=== PATIENT | male | born 1975 | race Hispanic/Latino ===

== ENCOUNTER → 2023-02-16 | Emergency (ER) | payer BC ==
--- OUTSIDE RECORDS SUMMARY | 2023-02-16 10:28 | XMS REPORT | Continuity of Care Document ---
Author Name Unknown Address [address] [facility] [address] [place] [address] [facility] thconnect Address [address] [facility] [address] [place] [address] Care Team Providers Care Floors Buffer Name Role Phone PCP, PATIENT DOES NOT HAVE A Primary Care Physic isa Unavailable LUIS GRIFFIN Attending Clinician Unavailable LAB90 Attending Clinician Unavailable ELIZABETH ROSS Attending Clinician Unavailable MINI VU Attending Clinician Unaaidee Vu MD, Mini Solo Attending Clinician [phone] Toñito Moss RN Attending Clinician Unavail able BERENICE DUGGAN Attending Clinician Unavailable Pat Lindsay NP Attending Clinician [phone] Berenice Duggan DO Attending Clinician [phone] BERENICE DUGGAN Admitting Clinician Unavailable Berenice Duggan DO Admitting Clinician [phone] Payers Payer Name Policy Type Policy Number Effective Date Expirati on Date Source BCBS 2 [id number] 2020 00:00:00 Problems Condition Name Condition Details Condition Category Status Onset Date Resolution Date Last Treatment Date Treating Clinician Comments Source Type 2 diabetes mellitus with hyperlipid emia (multi HCC) Type 2 diabetes mellitus with hyperlipid emia (multi HCC) Disease Active 11-21 00:00: 00 Mary Kay monte Class 2 severe obesity due to excess calories with serious comorbidit y and body mass index (BMI) of 36.0 to 36.9 in adult Class 2 severe obesity due to excess calories with serious comorbidit y and body mass index (BMI) of 36.0 to 36.9 in adult Disease Active 11-21 00:00: 00 Mary Kay monte Decreased libido Decreased libido Disease Active 11-21 00:00: 00 Mary Kay Rollinsa lavell Uncontroll ed type 2 diabetes mellitus with hyperglyce denny (HCC) - Not Controlled Uncontroll ed type 2 diabetes mellitus with hyperglyce denny (HCC) - Not Controlled Disease Active 09-08 00:00: 00 Mary Kay Rollinsa lavell Hyperlipid emia Hyperlipid emia Disease Active 09-08 00:00: 00 Mary Kay Rollinsa lavell Elevated liver enzymes - Not Controlled Elevated liver enzymes - Not Controlled Disease Active 09-08 00:00: 00 Mary Kay Rollinsa lavell Obesity (BMI 30-39.9) Obesity (BMI 30-39.9) Disease Active 07-23 00:00: 00 [facility] Acute respirator y failure due to COVID-19 Acute respirator y failure due to COVID-19 Disease Active 07-23 00:00: 00 Mary Kay Rollinsa lavell Allergies, Adverse Reactions, Alerts Allergy Name Allergy Type Status Severity Reaction(s) Onset Date Inactive Date Treating Clinician Comments Source NO KNOWN ALLERGIE S Drug Class Active [facility] Social History Social Habit Start Date Stop Date Quantity Comments Source Gender identity 2020-06-01 08:07:15 Identifies as male gender (finding) Mary Kay Greenfield - External Exposure to SARS-CoV-2 (event) Not sure Mary Kay florez Sexual orientation Jake Greenfield - External History of Social function 2022-08-07 00:00:00 2022-08-07 00:00:00 Mary Kay Greenfield - External Tobacco use and exposure 2022-07-02 00:00:00 2022-07-02 00:00:00 Smokeless tobacco non-user Mary Kay Greenfield - External Sex Assigned At 1975 00:00:00 1975 00:00:00 [facility] Smoking Status Start Date Stop Date Source Never smoked tobacco Mary Kay Jean Pierre Chambers Unknown if ever smoked [facility] Medications Ordered Medication Name Filled Medication Name Start Date Stop Date Current Medication? Ordering Clinician Indication Dosage Frequency Signature (SIG) Comments Components Source Cholecalcif sheldon (Vitamin D) 25 MCG (1000 UT) oral Tablet 2022-02 08:37: 58 Yes 25U Take 25 units by mouth daily. Mary Kay monte Cyanocobala min (B-12) 100 MCG oral Tablet 2022-02 08:37: 58 Yes Take by mouth. Mary Kay monte OZEMPIC (0.25 or 0.5 mg/dose) 2 mg/3 mL SQ Solution Pen-Injecto r 2022-02 00:00: 00 Yes [id number] .5mg Inject 0.5 mg into the skin once a week. Mary Kay monte Metformin HCl 500 MG oral Tablet 2022-02 00:00: 00 Yes [id number] 1000mg Take 2 tablets (1,000 mg total) by mouth in the morning and 2 tablets (1,000 mg total) in the evening. Take with meals. Mary Kay monte Empaglifloz in 10 MG oral Tablet 08-07 00:00: 00 Yes [id number] 10mg Take 1 tablet (10 mg total) by mouth daily Mary Kay monte Empaglifloz in 10 MG oral Tablet 14 00:00: 00 12-11 00:00 :00 No [id number] 10mg Take 1 tablet (10 mg total) by mouth daily Mary Kay monte Metformin HCl 500 MG oral Tablet 18 00:00: 00 Yes [id number] 1000mg Take 2 tablets (1,000 mg total) by mouth in the morning and 2 tablets (1,000 mg total) in the evening. Take with meals. Mary Kay monte Metformin HCl 500 MG oral Tablet 18 00:00: 00 12-11 00:00 :00 No [id number] 1000mg Take 2 tablets (1,000 mg total) by mouth in the morning and 2 tablets (1,000 mg total) in the evening. Take with meals. Mary Kay Seybold - Externa l Blood Glucose Monitoring Suppl (Blood Glucose Monitor System) w/Device does not apply Kit 07-02 00:00: 00 Yes [id number] Check BS daily Mary Kay Seybold - Externa l Glucose Blood in vitro Strip 07-02 00:00: 00 Yes [id number] 1{each} 1 each by other route daily Check BS daily Mary Kay Seybold - Externa l Lancets 33G does not apply Misc 07-02 00:00: 00 Yes [id number] 1{ivon t} 1 Lancet by does not apply route daily Check BS daily Mary Kay Seybold - Externa l Rosuvastati n Calcium 10 MG oral Tablet 07-02 00:00: 00 Yes [id number] 10mg Take 1 tablet (10 mg total) by mouth nightly Mary Kay Seybold - Externa l Blood Glucose Monitoring Suppl (Blood Glucose Monitor System) w/Device does not apply Kit 07-02 00:00: 00 Yes [id number] Check BS daily Mary Kay Seybold - Externa l Glucose Blood in vitro Strip 07-02 00:00: 00 Yes [id number] 1{each} 1 each by other route daily Check BS daily Mary Kay Seybold - Externa l Lancets 33G does not apply Misc 07-02 00:00: 00 Yes [id number] 1{ivon t} 1 Lancet by does not apply route daily Check BS daily Mary Kay Seybold - Externa l Rosuvastati n Calcium 10 MG oral Tablet 07-02 00:00: 00 Yes [id number] 10mg Take 1 tablet (10 mg total) by mouth nightly Mary Kay Seybold - Externa l Blood Glucose Monitoring Suppl (Blood Glucose Monitor System) w/Device does not apply Kit 07-02 00:00: 00 Yes [id number] Check BS daily Mary Kay Seybold - Externa l Glucose Blood in vitro Strip 07-02 00:00: 00 Yes [id number] 1{each} 1 each by other route daily Check BS daily Mary Kay Seybold - Externa l Lancets 33G does not apply Misc 07-02 00:00: 00 Yes [id number] 1{ivon t} 1 Lancet by does not apply route daily Check BS daily Mary Kay monte Rosuvastati n Calcium 10 MG oral Tablet 07-02 00:00: 00 Yes [id number] 10mg Take 1 tablet (10 mg total) by mouth nightly Mary Kay monte Metformin HCl 500 MG oral Tablet 07-02 00:00: 00 Yes [id number] 500mg Take 1 tablet (500 mg total) by mouth in the morning and 1 tablet (500 mg total) in the evening. Take with meals. Mary Kay Greenfield - Ayoa l OZEMPIC (0.25 or 0.5 mg/dose) 2 mg/3 mL SQ Solution Pen-Injecto r 07-02 00:00: 00 12-11 00:00 :00 No [id number] .25mg Inject 0.25 mg into the skin once a week Mary Kay Rollinsa l OZEMPIC (0.25 or 0.5 mg/dose) 2 mg/3 mL SQ Solution Pen-Injecto r 07-02 00:00: 00 08-28 04:59 :00 No [id number] .25mg Inject 0.25 mg into the skin once a week Mary Kay Greenfield - Externa l OZEMPIC (0.25 or 0.5 mg/dose) 2 mg/3 mL SQ Solution Pen-Injecto r 07-02 00:00: 00 08-28 04:59 :00 No [id number] .25mg Inject 0.25 mg into the skin once a week Mary Kay Greenfield - Externa l OZEMPIC (0.25 or 0.5 mg/dose) 2 mg/1.5 mL SQ Solution Pen-Injecto r 11-21 00:00: 00 Yes [id number] 104 .25mg Inject 0.25 mg into the skin once a week Mary Kay Greenfield - Externa l OZEMPIC (0.25 or 0.5 mg/dose) 2 mg/1.5 mL SQ Solution Pen-Injecto r 11-21 00:00: 07-02 00:00 :00 No [id number] 104 .25mg Inject 0.25 mg into the skin once a week Mary Kay monte Rosuvastati n Calcium 10 MG oral Tablet 10-26 00:00: 00 Yes [id number] TAKE 1 TABLET BY MOUTH EVERY DAY Mary Kay monte Rosuvastati n Calcium 10 MG oral Tablet 10-26 00:00: 00 07-02 00:00 :00 No [id number] TAKE 1 TABLET BY MOUTH EVERY DAY Mary Kay monte glipiZIDE 5 MG oral Tablet 06-19 00:00: 00 Yes [id number] 5mg Take 1 tablet (5 mg total) by mouth daily (before a meal) Mary Kay monte glipiZIDE 5 MG oral Tablet 06-19 00:00: 00 07-02 00:00 :00 No [id number] 5mg Take 1 tablet (5 mg total) by mouth daily (before a meal) Mary Kay monte Rosuvastati n Calcium 10 MG oral Tablet 303 00:00: 00 Yes [id number] 10mg Take 1 tablet (10 mg total) by mouth daily Mary Kay Greenfield Metformin HCl 500 MG oral Tablet 2- 00:00: 00 Yes [id number] 1000mg Take 2 tablets (1,000 mg total) by mouth 2 times daily (with meals) Mary Kay Greenfield Metformin HCl 500 MG oral Tablet 0 2-28 00:00: 00 Yes [id number] 1000mg Take 2 tablets (1,000 mg total) by mouth 2 times daily (with meals) Mary Kay Greenfield Metformin HCl 500 MG oral Tablet 0 2-28 00:00: 00 Yes [id number] 1000mg Take 2 tablets (1,000 mg total) by mouth 2 times daily (with meals) Mary Kay monte Metformin HCl 500 MG oral Tablet 228 00:00: 00 07-02 00:00 :00 No [id number] 1000mg Take 2 tablets (1,000 mg total) by mouth 2 times daily (with meals) Mary Kay Seybold - Externa l Metformin HCl 500 MG oral Tablet 716 00:00: 00 04-23 00:00 :00 No [id number] 500mg Take 1 tablet (500 mg total) by mouth 2 times daily (with meals) Mary Kay Greenfield Dexamethaso ne 2 MG oral Tablet 08-16 00:00: 00 04-23 00:00 :00 No Mary Kay Greenfield cholecalcif sheldon, vitamin D3, 25 mcg (1,000 unit) tablet 07-28 00:00: 00 Yes [id number] 2000U Take 2 tablets by mouth daily. [facility] zinc sulfate 50 mg zinc (220 mg) capsule 07-28 00:00: 00 Yes [id number] 220mg Take 1 capsule by mouth daily. [facility] cholecalcif sheldon, vitamin D3, 25 mcg (1,000 unit) tablet 07-28 00:00: 00 Yes [id number] 2000U Take 2 tablets by mouth daily. [facility] zinc sulfate 50 mg zinc (220 mg) capsule 07-28 00:00: 00 Yes [id number] 220mg Take 1 capsule by mouth daily. [facility] Benzonatate 200 MG oral Capsule 07-28 00:00: 00 04-23 00:00 :00 No [id number] 200mg Q.[id number] 3D Take 1 capsule (200 mg total) by mouth 3 times daily as needed for cough Mary Kay Greenfield Cholecalcif sheldon 25 MCG (1000 UT) oral Tablet 07-28 00:00: 00 04-23 00:00 :00 No 2000U Take 2,000 units by mouth daily Mary Kay Greenfield ascorbic acid, vitamin C, 500 mg tablet 07-27 00:00: 00 Yes [id number] 500mg Take 1 tablet by mouth 2 (two) times daily. [facility] aspirin 81 mg chewable tablet 07-27 00:00: 00 Yes [id number] 81mg Take 1 tablet by mouth daily. [facility] ascorbic acid, vitamin C, 500 mg tablet 07-27 00:00: 00 Yes [id number] 500mg Take 1 tablet by mouth 2 (two) times daily. [facility] aspirin 81 mg chewable tablet 07-27 00:00: 00 Yes [id number] 81mg Take 1 tablet by mouth daily. [facility] Zinc Sulfate 220 (50 Zn) MG oral Capsule 07-27 00:00: 00 04-23 00:00 :00 No 1{capsu le} Take 1 capsule by mouth daily Mary Kay Greenfield Dexamethaso ne 6 MG oral Tablet 07-27 00:00: 00 04-23 00:00 :00 No TAKE 1 TABLET BY MOUTH DAILY WITH BREAKFAST FOR 5 DAYS. Mary Kay Greenfield Cholecalcif sheldon (Vitamin D3) 25 MCG (1000 UT) oral Tablet 07-27 00:00: 00 04-23 00:00 :00 No 2{tbl} Take 2 tablets by mouth daily Mary Kay Greenfield Aspirin 81 MG oral Chewable Tablet 07-27 00:00: 00 04-23 00:00 :00 No 81mg Take 81 mg by mouth daily Mary Kay Greenfield Ascorbic Acid 500 MG oral Tablet 07-27 00:00: 00 04-23 00:00 :00 No 500mg Take 500 mg by mouth 2 times daily Mary Kay Greenfield dexAMETHaso ne 6 mg tablet 07-27 00:00: 00 08-02 04:59 :00 No [id number] 6mg Take 1 tablet by mouth daily with breakfast for 5 days. [facility] dexAMETHaso ne 6 mg tablet 07-27 00:00: 00 08-02 04:59 :00 No [id number] 6mg Take 1 tablet by mouth daily with breakfast for 5 days. [facility] ALPRAZolam (XANAX) tablet 0.25 mg 07-25 01:00: 00 Yes .25mg 0.25 mg, Oral, TID, First dose on Fri07/24/20 at 2000, Until Discontinu ed, Routine [facility] cholecalcif sheldon (vitamin D3) tablet 1,000 Units 07-24 14:00: 00 Yes 1000U 1,000 Units, Oral, DAILY, First dose on Fri07/24/20 at 0900, Until Discontinu ed, Routine [facility] zinc sulfate (ORAZINC) capsule 220 mg 07-24 14:00: 00 Yes 220mg 220 mg, Oral, DAILY, First dose on Fri07/24/20 at 0900, Until Discontinu ed, Routine [facility] ascorbic acid (vitamin C) (VITAMIN C) tablet 500 mg 07-24 13:00: 00 Yes 500mg 500 mg, Oral, BID, First dose on Fri07/24/20 at 0800, Until Discontinu ed, Routine [facility] albuterol-i pratropium (COMBIVENT RESPIMAT) 20-100 mcg/actuati on inhaler 1 Puff 07-24 13:00: 00 Yes 1{puff} 1 Puff, Inhalation , QID, First dose on Fri07/24/20 at 0800, Until Discontinu ed, Routine
Is this order for a patient with suspected or confirmed COVID-19 infection? Yes [facility] codeine-gua ifenesin (ROBITUSSIN AC) 10-100 mg/5 mL solution 5 mL 07-24 02:09: 32 Yes 5mL 5 mL, Oral, Q6HPRN, Starting 07/23/20 at 210, Until Discontinu ed, Routine, Cough [facility] benzonatate (TESSALON PERLES) capsule 100 mg 07-24 02:09: 12 Yes 100mg 100 mg, Oral, TIDPRN, Starting 07/23/20 at 2109, Until Discontinu ed, Routine, Cough [facility] dexamethaso ne (DECADRON PHOSPHATE) injection 6 mg 07-24 01:30: 00 Yes 6mg 6 mg, IV Push, Q24H, First dose (after last reorder) on Fri07/23/20 at 2030, Until Discontinu ed, Routine [facility] enoxaparin (LOVENOX) injection 40 mg 07-24 01:00: 00 Yes 40mg 40 mg, Subcutaneo us, DAILY, First dose on Fri07/23/20 at 2000, Until Discontinu ed, Routine [facility] glucagon (GLUCAGEN DIAGNOSTIC KIT) injection 1 mg 07-24 00:16: 50 Yes 1mg 1 mg, Intramuscu lar, PRN, Starting Crowley 07/23/20 at 191, Until Discontinu ed, ALESSANDRO, Blood Glucose < or = 70 mg/dL and patient is unable to swallow or has mental changes. [facility] dextrose 50 % in water (D50W) injection 25 mL 07-24 00:16: 50 Yes 25mL 25 mL, Slow IV Push, PRN, Starting Crowley 07/23/20 at 191, Until Discontinu ed, ALESSANDRO, Blood Glucose < or = 70 mg/dL and patient is unable to swallow or has mental status changes. [facility] dexamethaso ne (DECADRON PHOSPHATE) injection 6 mg 07-23 23:15: 00 07-23 22:24 :00 No 6mg 6 mg, IV Push, ONCE, 1 dose, [place] 07/23/20 at 1815, STAT [facility] iopamidol (ISOVUE 370-500 mL) injection 100 mL 07-23 23:15: 00 07-23 22:08 :00 No [id number] 100mL 100 mL, Intravenou s, ONCE, 1 dose, [place] 07/23/20 at 1815, Routine [facility] benzonatate (TESSALON PERLES) capsule 200 mg 07-23 22:30: 00 07-23 21:26 :00 No 200mg 200 mg, Oral, ONCE, 1 dose, [place] 07/23/20 at 1730, Routine [facility] aspirin tablet 325 mg 07-23 22:00: 00 07-23 21:05 :00 No 325mg 325 mg, Oral, ONCE, 1 dose, [place] 07/23/20 at 1700, STAT [facility] albuterol (VENTOLIN) inhaler 4 Puff 07-23 22:00: 00 07-23 21:06 :00 No 4{puff} 4 Puff, Inhalation , ONCE, 1 dose, [place] 07/23/20 at 1700, ALESSANDRO
Is this order for a patient with suspected or confirmed COVID-19 infection? Yes [facility] NaCl 0.9% (NS) bolus infusion 1,000 mL 07-23 21:00: 00 07-23 22:30 :00 No 1000mL at 999 mL/hr, 1,000 mL, IV Infusion, ONCE, 1 dose, [place] 07/23/20 at 1600, ALESSANDRO [facility] Vital Signs Vital Name Observation Time Observation Value Comments S ource Systolic blood pressure 2022-12-11 13:38:00 113 mm[Hg] Mary Kay Seybo ld - External Diastolic blood pressure 2022-12-11 13:38:00 69 mm[Hg] Mary Kay ybo ld - External Heart rate 2022-12-11 13:38:00 80 /min Margie Greenfield - External Body temperature 2022-12-11 13:38:00 36.61 Germaine Mary Kay Khanybold - External Respiratory rate 2022-12-11 13:38:00 15 /min Mary Kay Khanybold - External Body height 2022-12-11 13:38:00 172.7 cm [place] gallego Seybold - External Body weight 2022-12-11 13:38:00 110.224 kg [place] gallego Seybold - External BMI 2022-12-11 13:38:00 36.95 kg/m2 [place] ey Seybold - External Oxygen saturation in Arterial blood by Pulse oximetry 2022-12-11 13:38:00 99 /min Mary Kay Khanybo ld - External Systolic blood pressure 2022-08-07 19:43:00 126 mm[Hg] Mary Kay Seybo ld - External Diastolic blood pressure 2022-08-07 19:43:00 70 mm[Hg] Mary Kay Seybo ld - External Heart rate 2022-08-07 19:43:00 76 /min Eltonse y Seybold - External Body temperature 2022-08-07 19:43:00 36.89 Germaine Amry Kay Seybold - External Respiratory rate 2022-08-07 19:43:00 16 /min Mary Kay Seybold - External Body height 2022-08-07 19:43:00 172.7 cm [place] ey Seybold - External Body weight 2022-08-07 19:43:00 110.768 kg [place] ey Seybold - External BMI 2022-08-07 19:43:00 37.13 kg/m2 [place] ey Seybold - External Oxygen saturation in Arterial blood by Pulse oximetry 2022-08-07 19:43:00 95 /min Mary Kay Seybo ld - External Systolic blood pressure 2022-07-02 19:28:00 121 mm[Hg] Mary Kay Seybo ld - External Diastolic blood pressure 2022-07-02 19:28:00 77 mm[Hg] Mary Kay Seybo ld - External Heart rate 2022-07-02 19:28:00 89 /min Kelse y Seybold - External Body temperature 2022-07-02 19:28:00 36.83 Germaine Mary Kay Seybold - External Respiratory rate 2022-07-02 19:28:00 14 /min Mary Kay Seybold - External Body height 2022-07-02 19:28:00 172.7 cm [place] ey Seybold - External Body weight 2022-07-02 19:28:00 112.038 kg [place] ey Seybold - External BMI 2022-07-02 19:28:00 37.56 kg/m2 [place] ey Seybold - External Systolic blood pressure 2021-11-21 19:07:00 104 mm[Hg] Mary Kay Seybo ld - External Diastolic blood pressure 2021-11-21 19:07:00 60 mm[Hg] Mary Kay Seybo ld - External Heart rate 2021-11-21 19:07:00 78 /min Kelse y Seybold - External Body temperature 2021-11-21 19:07:00 36.56 Germaine Mary Kay Seybold - External Respiratory rate 2021-11-21 19:07:00 16 /min Mary Kay Seybold - External Body height 2021-11-21 19:07:00 172.7 cm [place] ey Seybold - External Body weight 2021-11-21 19:07:00 112.038 kg [place] ey Seybold - External BMI 2021-11-21 19:07:00 37.56 kg/m2 [place] ey Seybold - External Systolic blood pressure 2021-06-18 14:22:00 127 mm[Hg] Mary Kay Seybo ld Diastolic blood pressure 2021-06-18 14:22:00 83 mm[Hg] Mary Kay Seybo ld Heart rate 2021-06-18 14:22:00 80 /min Kelse y Seybold Body temperature 2021-06-18 14:22:00 36.56 Germaine Mary Kay Seybold Respiratory rate 2021-06-18 14:22:00 14 /min Mary Kay Seybold Body height 2021-06-18 14:22:00 172.7 cm [place] ey Seybold Body weight 2021-06-18 14:22:00 112.038 kg [place] ey Seybold BMI 2021-06-18 14:22:00 37.56 kg/m2 [place] ey Seybold Oxygen saturation in Arterial blood by Pulse oximetry 2021-06-18 14:22:00 99 /min Mary Kay Seybo ld Systolic blood pressure 2021-04-23 15:44:00 116 mm[Hg] Mary Kay Seybo ld Diastolic blood pressure 2021-04-23 15:44:00 74 mm[Hg] Mary Kay Seybo ld Heart rate 2021-04-23 15:44:00 84 /min Kelse y Seybold Body temperature 2021-04-23 15:44:00 36.39 Germaine Mary Kay Seybold Respiratory rate 2021-04-23 15:44:00 14 /min Mary Kay Seybold Body height 2021-04-23 15:44:00 172.7 cm [place] ey Seybold Body weight 2021-04-23 15:44:00 110.224 kg [place] ey Seybold BMI 2021-04-23 15:44:00 36.95 kg/m2 [place] ey Seybold Respiratory rate 2020-07-27 17:29:00 16 /min [facility] Oxygen saturation in Arterial blood by Pulse oximetry 2020-07-27 17:29:00 93 /min [facility] Systolic blood pressure 2020-07-27 17:07:00 129 mm[Hg] [facility] Diastolic blood pressure 2020-07-27 17:07:00 81 mm[Hg] [facility] Body temperature 2020-07-27 17:07:00 36.78 Germaine [facility] Heart rate 2020-07-27 09:15:00 81 /min [facility] Body weight 2020-07-27 09:15:00 106.459 kg [facility] BMI 2020-07-27 09:15:00 35.69 kg/m2 [facility] Body height 2020-07-24 01:00:00 172.7 cm [facility] Procedures Procedure Date / Time Performed Performing Clinician Source BASIC METABOLIC PANEL (NA, K, CL, CO2, GLUCOSE, BUN, CREATININE, CA) 2020-07-26 10:56:00 Berenice Duggan [facility] MAGNESIUM 2020-07-25 11:09:00 Berenice Duggan [facility] BASIC METABOLIC PANEL (NA, K, CL, CO2, GLUCOSE, BUN, CREATININE, CA) 2020-07-25 11:09:00 Berenice Duggan [facility] CBC WITH DIFF 2020-07-25 11:08:00 Berenice Duggan [facility] MRSA / MSSA SCREEN BY PCRLENA 2020-07-24 21:51:00 Berenice Duggan [facility] CT CHEST PULMONARY ANGIOGRAM 2020-07-23 22:11:49 Pat Lindsay [facility] HB ECG ROUTINE & RHYTHM STRIP 2020-07-23 21:32:49 Pat Lindsay [facility] D-DIMER 2020-07-23 21:16:00 Pat Lindsay [facility] N-TERMINAL PRO-BNP 2020-07-23 21:16:00 Pat Lindsay [facility] COVID-19 (ID NOW RAPID TESTING) 2020-07-23 21:16:00 Pat Lindsay [facility] LAB ONLY COVID INTERPRETATION 2020-07-23 21:16:00 Pat Lindsay [facility] LACTATE DEHYDROGENASE 2020-07-23 21:16:00 Aretha Lindsay [facility] LIPASE 2020-07-23 21:16:00 Pat Lindsay [facility] FERRITIN SERUM 2020-07-23 21:16:00 [facility] 2020-07-23 21:16:00 Pat Lindsay [facility] HEPATIC FUNCTION PANEL ([id number]) (ALB,T.PRO,BILI T,BU/BC,ALT,AST,ALK PHOS) 2020-07-23 21:16:00 Pat Lindsay [facility] BASIC METABOLIC PANEL (NA, K, CL, CO2, GLUCOSE, BUN, CREATININE, CA) 2020-07-23 21:16:00 Pat Lindsay [facility] CBC WITH DIFF 2020-07-23 21:16:[address] [facility] LACTIC ACID WHOLE BLOOD 2020-07-23 21:15:00 Kehinde Lindsay [facility] XR CHEST 1 VW 2020-07-23 21:02:[address] [facility] NOTICE OF PRIVACY PRACTICES 2020-07-23 20:33:17 Doctor Unassigned, [place] [facility] CONSENT/REFUSAL FOR DIAGNOSIS AND TREATMENT 2020-07-23 20:33:05 Doctor Unassigned, [place] [facility] Encounters Start Date/Time End Date/Time Encounter Type Admission Type Attending [facility] Care Facility Care Department Encounter ID Source 2023-01-22 15:30:00 2023-01-22 15:30:00 Outpatient LUIS GRIFFIN [id number] Mary Kay Greenfield 2023-01-16 00:00:00 2023-01-16 00:00:00 Outpatient LUIS GRIFFIN [id number] Mary Kay Greenfield 2022-12-16 00:00:00 2022-12-16 00:00:00 Outpatient LUIS GRIFFIN [id number] Mary Kay Greenfield 2022-12-13 00:00:00 2022-12-13 00:00:00 Outpatient PREZAS, LUIS PAYTON MARY KAY [id number] Mary Kay [facility] 2022-12-11 09:30:00 2022-12-11 09:30:00 Outpatient LABWilliams PAYTON MARY KAY [id number] Mary Kay [facility] 2022-12-11 09:00:00 2022-12-11 09:00:00 Outpatient PREZAS, LUIS PAYTON MARY KAY [id number] Mary Kay [facility] 2022-10-31 00:00:00 2022-10-31 00:00:00 Outpatient PREZAS, LUIS MARY KAY PAYTON [id number] Mary Kay [facility] 2022-10-11 00:00:00 2022-10-11 00:00:00 Outpatient PREZAS, LUIS MARY KAY PAYTON [id number] Mary Kay [facility] 2022-09-18 00:00:00 2022-09-18 00:00:00 Outpatient PREZAS, LUIS MARY KAY PAYTON [id number] Mary Kay [facility] 2022-09-10 00:00:00 2022-09-10 00:00:00 Outpatient PREZAS, LUIS MARY KAY PAYTON [id number] Mary Kay [facility] 2022-08-07 14:45:00 2022-08-07 14:45:00 Outpatient CODY, ELIZABETH MARY KAY PA[place]TON [id number] Mary Kay [facility] 2022-08-01 13:45:00 2022-08-01 13:45:00 Outpatient PREZAS, LUIS MARY KAY PAYTON [id number] Mary Kay [facility] 2022-07-11 00:00:00 2022-07-11 00:00:00 Outpatient PREZAS, LUIS MARY KAY PAYTON [id number] Mary Kay [facility] 2022-07-02 15:00:00 2022-07-02 15:00:00 Outpatient LABWilliams MARY KAY PAYTON [id number] Mary Kay [facility] 2022-07-02 14:15:00 2022-07-02 14:15:00 Outpatient PREZAS, LUIS MARY KAY PAYTON [id number] Mary Kay [facility] 2022-06-17 08:45:00 2022-06-17 08:45:00 Outpatient PREZAS, LUIS PAYTON MARY KAY [id number] Mary Kay [facility] 2022-05-17 00:00:00 2022-05-17 00:00:00 Outpatient PREZAS, LUIS PAYTON MARY KAY [id number] Mary Kay [facility] 2022-01-29 00:00:00 2022-01-29 00:00:00 Outpatient PREZAS, LUIS PAYTON MARY KAY [id number] [facility] 2021-12-07 00:00:00 2021-12-07 00:00:00 Outpatient PREZALUIS Alicea MARY KAY [id number] Mary Kay [facility] 2021-11-21 15:00:00 2021-11-21 15:00:00 Outpatient LAB90 MARY KAY MARY KAY [id number] Mary Kay [facility] 2021-11-21 14:15:00 2021-11-21 14:15:00 Outpatient PREZAS, LUIS PAYTON MARY KAY [id number] Mary Kay [facility] 2021-11-20 00:00:00 2021-11-20 00:00:00 Outpatient PREZAS, LUIS PAYTON MARY KAY [id number] Mary Kay [facility] 2021-09-27 00:00:00 2021-09-27 00:00:00 Outpatient MINI VU [id number] [facility] 2021-09-26 00:00:00 2021-09-26 00:00:00 [facility] [id number] [facility] 2021-09-21 09:10:00 2021-09-21 09:10:00 Outpatient LAB90 MARY KAY MARY KAY [id number] Mar [facility] 2021-09-20 09:15:00 2021-09-20 09:45:00 Office Visit Mini Vu Valentines [id number] 350.1.13.13 [id number] [id number] [facility] 2021-09-17 08:00:00 2021-09-17 08:00:00 Outpatient MINI VU [id number] [facility] 2021-06-18 10:15:00 2021-06-18 10:15:00 Outpatient LAB90 MARY KAY PAYTON [id number] Mary Kay [place] 2021-06-18 09:45:00 2021-06-18 10:00:00 Office Visit Mini Vu 1.84.114 350.1.13.13 1.2.7.2.686 [id number] Mary Kay [place] 2021-04-24 09:35:00 2021-04-24 09:35:00 Outpatient LAB90 MARY KAY PAYTON [id number] [facility] 2021-04-23 10:00:00 2021-04-23 10:30:00 Office Visit Mini Vu 1.84.114 350.1.13.13 1.2.7.2.686 [id number] [facility] 2020-10-09 08:15:00 2020-10-09 08:15:00 Outpatient MINI VU MARY KAY PAYTON [id number] [facility] 2020-09-08 13:30:00 2020-09-08 13:30:00 Outpatient MINI VU MARY KAY PAYTON [id number] Mary Kay [facility] 2020-07-28 00:00:00 2020-07-28 00:00:00 Transition of Care Toñito Moss .84.114 350.1.13.10 4.2.7.2.686 [id number] [facility] 2020-07-23 15:56:00 2020-07-27 16:42:00 Inpatient X BERENICE DUGGAN [facility] [id number] [facility] 2020-07-23 15:56:00 2020-07-27 16:42:00 Hospital Encounter Pat Lindsay David [facility] 1.840.114 350.1.13.10 4.2.7.2.686 [id number] [facility] Results Test Description Test Time Test Comments Results Result Co mments Source [facility] by PCR, [id number] 15:51:01* Test Item Value Reference Range Interpretation Comme nts MSSA Screen by PCR, Nares (test code = 70511-4) Positive Negative A MRSA/MSSA Positive? (test code = 4543044556) Yes No A MCKENNA (test code = MCKENNA) A positive test result does not necessarily indicate the presence of viable organism. Lab Interpretation (test code = 96018-0) [facility]normal [facility] WITH [id number] 13:14:16* Test Item Value Reference Range Interpretation Comme nts WBC (test code = 6690-2) See_Comment [Automated messa ge] The system which generated this result transmitted reference range: 4.20 - 10.70 10*3/?L. The reference range was not used to interpret this result as normal/abnormal. RBC (test code = 789-8) See_Comment [Automated messa ge] The system which generated this result transmitted reference range: 4.26 - 5.52 10*6/?L. The reference range was not used to interpret this result as normal/abnormal. HGB (test code = 718-7) 14.6 g/dL 12.2-16.4 HCT (test code = 4544-3) 43.6 % 38.4-49.3 MCV (test code = 787-2) 84.5 fL 81.7-95.6 MCH (test code = 785-6) 28.3 pg 26.1-32.7 MCHC (test code = 786-4) 33.5 g/dL 31.2-35.0 RDW-SD (test code = 46759-4) 38.4 fL 38.5-51.6 L RDW-CV (test code = 788-0) 12.4 % 12.1-15.4 PLT (test code = 777-3) See_Comment H [Automated messa ge] The system which generated this result transmitted reference range: 150 - 328 10*3/?L. The reference range was not used to interpret this result as normal/abnormal. MPV (test code = 64247-0) 9.9 fL 9.8-13.0 NRBC/100 WBC (test code = 6221916095) See_Comment [Automated me ssage] The system which generated this result transmitted reference range: 0.0 - 10.0 /100 WBCs. The reference range was not used to interpret this result as normal/abnormal. NRBC x10^3 (test code = 0436713422) <0.01 See_Comment [Automated messa ge] The system which generated this result transmitted reference range: 10*3/?L. The reference range was not used to interpret this result as normal/abnormal. GRAN MAT (NEUT) % (test code = 770-8) 79.5 % IMM GRAN % (test code = 8567097112) 1.20 % LYMPH % (test code = 736-9) 13.0 % MONO % (test code = 5905-5) 6.1 % EOS % (test code = 713-8) 0.0 % BASO % (test code = 706-2) 0.2 % GRAN MAT x10^3(ANC) (test code = 0416772105) 7.60 10*3/uL 1.99-6.95 H IMM GRAN x10^3 (test code = 2568399874) 0.11 10*3/uL 0.00-0.06 H LYMPH x10^3 (test code = 731-0) 1.24 10*3/uL 1.09-3.23 MONO x10^3 (test code = 742-7) 0.58 10*3/uL 0.36-1.02 EOS x10^3 (test code = 711-2) <0.03 0.06-0.53 L BASO x10^3 (test code = 704-7) <0.03 0.01-0.09 Lab Interpretation (test code = 17932-0) Abnormal [facility] METABOLIC PANEL (NA, K, CL, CO2, GLUCOSE, BUN, CREATININE, CA)2020-07-25 11:53:08* Test Item Value Reference Range Interpretation Comme nts NA (test code = 6176541597) 138 mmol/L 135-145 K (test code = 5140716226) 4.1 mmol/L 3.5-5.0 CL (test code = 0826813883) 100 mmol/L 98-108 CO2 TOTAL (test code = 1779977631) 30 mmol/L 23-31 AGAP (test code = 7008983061) 2-16 BUN (test code = 7090372212) 16 mg/dL 7-23 GLUCOSE (test code = 1420414081) 181 mg/dL 70-110 H CREATININE (test code = 7864751010) 0.83 mg/dL 0.60-1.25 CALCIUM (test code = 8346935376) 9.1 mg/dL 8.6-10.6 eGFR (test code = 0835780942) mL/min/1.73m2 MCKENNA (test code = MCKENNA) Association of Glomerular Filtration Rate (GFR) and Staging of Kidney Disease* + --+ --+ ------+| GFR (mL/min/1.73 m2) ?| With Kidney Damage ?| ?Without Kidney Damage+ --------+ --------+ +| ?>90 ?| ?Stage one ?| ? Normal ?+ ---+ ---+ -------+| ?60-89 ?| ?Stage two ?| ? Decreased GFR ? + --+ --+ ------+| ?30-59 ?| ?Stage three ?| ? Stage three ? + --+ --+ ------+| ?15-29 ?| ?Stage four ? | ? Stage four ?+ ---+ ---+ -------+| ?<15 (or dialysis) ? ?| ?Stage five ? | ? Stage five ?+ ---+ ---+ -------+ *Each stage assumes the associated GFR level has been in effect for at least three months. ?Stages 1 to 5, with or without kidney disease, indicate chronic kidney disease. Notes: Determination of stages one and two (with eGFR >59mL/min/1.73 m2) requires estimation of kidney damage for at least three months as defined by structural or functional abnormalities of the kidney, manifested by either:Pathological abnormalities or Markers of kidney damage (including abnormalities in the composition of the blood or urine or abnormalities in imaging tests). Lab Interpretation (test code = 48542-5) [facility]* Test Item Value Reference Range Interpretation Comme nts MAGNESIUM (test code = 5163920382) 2.4 mg/dL 1.7-2.4 Lab Interpretation (test cod e = 90446-2) Normal [facility] COVID [id number] 04:29:24COVID DMT InterpretationInterpretation/Recommendations: Molecular NAAT Tests for Active Infection with the SARS-CoV-2 Virus: The current test result is positive for the SARS-CoV-2 virus that causes COVID-19 illness. In tvsj-cj-ccjtdrem illness, the patient may be considered no longer infectious when it has been after 10 days since symptom onset, the patient has been afebrile for 24 hours without the use of fever-reducing medications, AND other symptoms of COVID-19 are improving. However, in patients who have been severely ill with COVID-19 or are severely immunocompromised, isolation up to 20days after symptom onset is recommended. Asymptomatic patients are considered infectious for the first 10 days subsequent to the initial positive test result. From the onset of symptoms, if any, thisresult is likely to remain positive up to 2-4 weeks. Tests for IgM and/or IgG Antibodies to the SARS-CoV-2 Virus: ? Testing for IgM and IgG antibodies approximately 3 weeks after illness onset will likely indicate whether the patient has produced antibodies to the SARS-CoV-2 virus. However, some patients may take longer to develop detectable antibodies, while some patients who were infected with SARS-CoV-2 may never develop antibodies. While antibodies to SARS-CoV-2 may provide some degree of im munity, at this time the strength and duration of the antibody response is unknown. Interpretation Result Comments:These interpretation comments are based upon all COVID-19 testing the patient has had at [facility], including molecular NAAT testing (more commonly known as PCR testing and Rapid ID Now testing) and antibody testing.It does not take into account any testing that a patient has had outside of the [facility] medical record. [facility] LABORATORY SERVICESCOVID GnozugnPUGD-UmU-7 Rapid ID NOW (no units) ? ? Date ? Value ? 07/23/2020 ? Positive (A) ? [facility]ORAT[facility] SERVICESP[facility] HospitalCT CHEST PULMONARY [id number] 00:56:041. ?No pulmonary embolism. 2. ?Findings compatible with known atypical infection, including Covid 19 pneumonia. Preliminary Report Dictated by Resident: Joshua Barbosa I, Manjeet Garcia MD., have reviewed this study and agree with theabove report.PROCEDURE: CT ANGIO CHEST WITH CONTRAST - PE PROTOCOL CLINICAL INDICATION: PE suspected, high pretest prob ? COMPARISON: Same day chest radiograph. DOSE: 200 mGy-cm TECHNIQUE AND FINDINGS: A helical CT scan was performed and reconstructedusing 1.25 mmslice thickness from the lung bases through the apices afterthe uncomplicated administration of 100cc of intravenous Omnipaquecontrast. Sagittal and coronal reconstructions, and axial maximum intensityprojections were generated and reviewed to further define anatomy andpossible pathology. (DFOV = 44.5 cm) FINDINGS: PULMONARY ARTERIES: Technically adequate enhancement of the pulmonaryarteries reveals no pulmonary embolism to the level of segmental branches. LINES AND TUBES: None LOWER NECK/THYROID: The visualized portions of thyroid gland are normal. LUNGS: Multifocal peripheral groundglass opacities in the bilateral lungs,which may be seen in the setting of atypical pneumonia. PLEURA: No pleural effusion or pneumothorax. CENTRAL AIRWAY: No bronchiectasis, mucus plugging, or bronchial wallthickening. MEDIASTINUM: A couple of small reactive mediastinal and hilar lymph nodesmeasuring 1 cmin left prevascular station and 1.1 cm in subcarinal and 1.2cm in right hilum. Normal cardiac morphology. No pericardial effusion. AORTA AND GREAT VESSELS: The visualized portions of the aorta are normal incaliber. BONES AND SOFT TISSUES: No suspicious lytic or blastic skeletal lesions. VISUALIZED UPPER ABDOMEN: Unremarkable. [facility], Radiant Results Inft User - 07/23/2020 7:57 PM CDT PROCEDURE: CT ANGIO CHEST WITH CONTRAST - PE PROTOCOLCLINICAL INDICATION: PE suspected, high pretest prob COMPARISON: Same day chest radiograph.DOSE: 200 mGy-cmTECHNIQUE AND FINDINGS: A helical CT scan was performed and reconstructedusing 1.25 mm slice thickness from the lung bases through the apices afterthe uncomplicated administration of 100 cc of in travenous Omnipaquecontrast. Sagittal and coronal reconstructions, and axial maximum intensityprojections were generated and reviewed to further define anatomy andpossible pathology. (DFOV = 44.5 cm)FINDINGS: PULMONARY ARTERIES: Technically adequate enhancement of the pulmonaryarteries reveals no pulmonary embolism to the level of segmental branches.LINES AND TUBES: NoneLOWER NECK/THYROID: The visualized portions of thyroid gland are normal.LUNGS: Multifocal peripheral groundglass opacities in the bilateral lungs,which may be seen in the setting of atypical pneumonia.PLEURA: No pleural effusion or pneumothorax.CENTRAL AIRWAY: No bronchiectasis, mucus plugging, or bronchial wallthickening.MEDIASTINUM: A couple of small reactive mediastinal and hilar lymph nodesmeasuring 1 cm in left prevascular station and 1.1 cm in subcarinal and 1.2cm in right hilum. Normal cardiac morphology. No pericardial effusion. AORTA AND GREAT VESSELS: The visualized portions of the aorta are normal incaliber.BONES AND SOFT TISSUES: No suspicious lytic or blastic skeletal lesions.VISUALIZED UPPER ABDOMEN: Unremarkable.IMPRESSION1. No pulmonary embolism.2. Findings compatible with known atypical infection, including Covid 19pneumonia.Preliminary Report Dictated by Resident: Manjeet Vora MD., have reviewed this study and agree with theabove report. [facility] HospitalXR CHEST 1 [id number] 00:02:18Findings suggestive of atypical infection including but not limited toCovid 19. Preliminary Report Dictated by Resident: Manjeet Melendez MD., have reviewed this study and agree with theabove report.EXAM: XR CHEST 1 VW 07/23/2020 3:57 PM HISTORY: 45 years-old Male with sob COMPARISON: CR,none TECHNIQUE: AP chest radiograph. FINDINGS: Multiple bilateral hazy patchy opacities with peripheral predominance. Thelungs are under distended. No pleural effusion or pneumothorax identified. The cardiomediastinal silhouette is normal in size. No acute osseous abnormalities. [facility], Radiant Results Inft User - 07/23/2020 7:03 PM CDTFormatting of this note might be different from the orig inal.EXAM: XR CHEST 1 VW 07/23/2020 3:57 PMHISTORY: 45 years-old Male with sob COMPARISON: CR,none TECHNIQUE: AP chest radiograph.FINDINGS:Multiple bilateral hazy patchy opacities with peripheral predominance. Thelungs are under distended. No pleural effusion or pneumothorax identified.The cardiomediastinal silhouette is normal in size.No acute osseous abnormalities.IMPRESSIONFindings suggestive of atypical infection including but not limited toCovid 19.Preliminary Report Dictated by Resident: Kayleen Miguel, Manjeet Nichole MD., have reviewed this study and agree with theabove report.[facility] HospitalFERRITIN [id number] 22:39:08* Test Item Value Reference Range Interpretation Comme nts FERRITIN (test code = 4058131419) >1000.0 18.0-464.0 H MCKENNA (test code = MCKENNA) Biotin has been reported to cause a negative bias, interpret results relative to patient's use of biotin. Lab Interpretation (test code = 41005-7) Abnormal [facility] Hospital[facility]OVID-[facility] (ID NOW RAPID TESTING)2020-07-23 22:24:20* Test Item Value Reference Range Interpretation Comme nts SARS-CoV-2 Rapid ID NOW (test code = 03653-4) Positive Not Detected A MCKENNA (test code = MCKENNA) ID NOW COVID-19 As say is an isothermal nucleic acid amplification test intended for the qualitative detection of nucleic acid from SARS-CoV-2 viral RNA in nasopharyngeal (ELECTRICIAN FRONT) specimens. It is used under Emergency Use Authorization (EUA) by FDA. The limit of detection (LOD) of the assay is 125 Genome Equivalents/mL. A positive result is indicative of the presence of SARS-CoV-2 RNA. ?Clinical correlation with patient history and other diagnostic information is necessary to determine patient infection status. A negative (Not Detected) result does not preclude SARS-CoV-2 infection. In patients with clinical symptoms and other tests that are consistent with SARS-CoV-2 infection, negative results should be treated as presumptive negative and a new specimen should be tested with alternative PCR molecular test. Invalid: Please collect a new specimen for repeat patient testing if clinically indicated. Lab Interpretation (test code = 28055-9) Abnormal [facility] HospitalTroponin [id number] 21:53:04* Test Item Value Reference Range Interpretation Comme nts TROPONIN I (test code = 2869342390) 0.000 ng/mL See_Comment [Automated message] The system which generated this result transmitted reference range: <=0.034. The reference range was not used to interpret this result as normal/abnormal. MCKENNA (test code = MCKENNA) Equal or Less than 0.034 ng/ml---Normal ?Note: Cardiac troponin begins to rise 3-4 hours after the onset of ischemia. Repeat in 4-6 hours if the sample was drawn within 3-4 hours of the onset of the symptom and found normal. Between 0.035 and 0.120 ng/mL--- Borderline. Questionable myocardial injury or necrosis ? ?Note: Serial measurement may be necessary to confirm or exclude the diagnosis of myocardial injury or necrosis; Clinical correlation (symptoms, EKGs, imaging studies, and others) required; Repeat in 4-6 hours if clinically indicated. ? Equal or Higher than 0.121 ng/mL---Abnormal. Myocardial Injury or Necrosis Likely ? Biotin has been reported to cause a negative bias, interpret results relative to patient's use of biotin. ? Lab Interpretation (test code = 20491-8) Normal [facility] HospitalN-TERMINAL [id number] 21:50:07* Test Item Value Reference Range Interpretation Comme nts NT-proBNP (test code = 3950324871) 27 pg/mL See_Comment [Automated message] The system which generated this result transmitted reference range: <=125. The reference range was not used to interpret this result as normal/abnormal. MCKENNA (test code = MCKENNA) Biotin has been reported to cause a negative bias, interpret results relative to patient's use of biotin. Lab Interpretation (test code = 95779-8) Normal [facility] HospitalHepatic Function Panel (ALB, T.PRO, BILI T, BU/BC, ALT, AST, ALK PHOS)2020-07-23 21:42:47* Test Item Value Reference Range Interpretation Comme nts TOTAL BILI (test code = 6814308798) 0.8 mg/dL 0.1-1.1 BILI UNCON (test code = 8059964258) 0.4 mg/dL 0.1-1.1 BILI CONJ (test code = 6193167836) 0.0 mg/dL 0.0-0.3 T PROTEIN (test code = 0524658892) 8.1 g/dL 6.3-8.2 ALBUMIN (test code = 6332437891) 4.2 g/dL 3.5-5.0 ALK PHOS (test code = 4850641171) 123 U/L 34-122 H ALTv (test code = 1742-6) 81 U/L 5-50 H AST(SGOT) (test code = 9616288535) 73 U/L 13-40 H Lab Interpretation (test cod e = 36415-8) Abnormal [facility] Metabolic Panel (NA, K, CL, CO2, GLUCOSE, BUN, CREATININE, CA)2020-07-23 21:42:46* Test Item Value Reference Range Interpretation Comme nts NA (test code = 4963281801) 136 mmol/L 135-145 K (test code = 6665998816) 3.7 mmol/L 3.5-5.0 CL (test code = 0004256486) 98 mmol/L 98-108 CO2 TOTAL (test code = 9190157369) 27 mmol/L 23-31 AGAP (test code = 7456067447) 2-16 BUN (test code = 2016839394) 10 mg/dL 7-23 GLUCOSE (test code = 5101383309) 152 mg/dL 70-110 H CREATININE (test code = 7576592339) 1.02 mg/dL 0.60-1.25 CALCIUM (test code = 1628766480) 9.1 mg/dL 8.6-10.6 eGFR (test code = 2228338873) mL/min/1.73m2 MCKENNA (test code = MCKENNA) Association of Glomerular Filtration Rate (GFR) and Staging of Kidney Disease* + --+ --+ ------+| GFR (mL/min/1.73 m2) ?| With Kidney Damage ?| ?Without Kidney Damage+ --------+ --------+ +| ?>90 ?| ?Stage one ?| ? Normal ?+ ---+ ---+ -------+| ?60-89 ?| ?Stage two ?| ? Decreased GFR ? + --+ --+ ------+| ?30-59 ?| ?Stage three ?| ? Stage three ? + --+ --+ ------+| ?15-29 ?| ?Stage four ? | ? Stage four ?+ ---+ ---+ -------+| ?<15 (or dialysis) ? ?| ?Stage five ? | ? Stage five ?+ ---+ ---+ -------+ *Each stage assumes the associated GFR level has been in effect for at least three months. ?Stages 1 to 5, with or without kidney disease, indicate chronic kidney disease. Notes: Determination of stages one and two (with eGFR >59mL/min/1.73 m2) requires estimation of kidney damage for at least three months as defined by structural or functional abnormalities of the kidney, manifested by either:Pathological abnormalities or Markers of kidney damage (including abnormalities in the composition of the blood or urine or abnormalities in imaging tests). Lab Interpretation (test code = 74160-3) Abnormal [facility] HospitalLipase [id number] 21:42:26* Test Item Value Reference Range Interpretation Comme nts LIPASE (test code = 8184724520) 30 U/L 0-220 Lab Interpretation (test cod e = 04715-4) Normal [facility] HospitalLACTATE [id number] 21:42:26* Test Item Value Reference Range Interpretation Comme nts LDH (test code = 2870837831) 1413 U/L 300-600 H Lab Interpretation (test cod e = 48441-0) Abnormal [facility] HospitalD-[id number] 21:38:44* Test Item Value Reference Range Interpretation Comments D-DIMER (test code = 3935318350) See_Comment H [Automated message] The system which generated this result transmitted reference range: <0.41 ?g/mL (FEU). The reference range was not used to interpret this result as normal/abnormal. MCKENNA (test code = MCKENNA) This test may be used in conjunction with a clinical pretest probability (PTP) assessment model to exclude venous thromboembolism (VTE) in patients suspected of deep venous thrombosis (DVT) and pulmonary embolism (PE) A D-Dimer value less than 0.50 ?g/ml (FEU) has a negative predicative value of 96 to 100% (95% CI)and 97 to 100% (95% CI) as an aid in the diagnosis of deep vein thrombosis (DVT) and pulmonary embolism when there is low or moderate pretest probability of PE or DVT. D-Dimer values are expressed in initial fibrinogen equivalent units (FEU)" The assay results should be used with other information, including the clinical context, in forming a diagnosis. Lab Interpretation (test code = 35324-2) Abnormal [facility] with [id number] 21:31:05* Test Item Value Reference Range Interpretation Comme nts WBC (test code = 6690-2) See_Comment H [Automated [employer] Hello[employer]ax] The system which generated this result transmitted reference range: 4.20 - 10.70 10*3/?L. The reference range was not used to interpret this result as normal/abnormal. RBC (test code = 789-8) See_Comment [Automated [employer] Hello[employer]ax] The system which generated this result transmitted reference range: 4.26 - 5.52 10*6/?L. The reference range was not used to interpret this result as normal/abnormal. HGB (test code = 718-7) 15.4 g/dL 12.2-16.4 HCT (test code = 4544-3) 45.8 % 38.4-49.3 MCV (test code = 787-2) 83.9 fL 81.7-95.6 MCH (test code = 785-6) 28.2 pg 26.1-32.7 MCHC (test code = 786-4) 33.6 g/dL 31.2-35.0 RDW-SD (test code = 99971-5) 38.5 fL 38.5-51.6 RDW-CV (test code = 788-0) 12.6 % 12.1-15.4 PLT (test code = 777-3) See_Comment H [Automated [employer] Hello[employer]ax] The system which generated this result transmitted reference range: 150 - 328 10*3/?L. The reference range was not used to interpret this result as normal/abnormal. MPV (test code = 58858-0) 10.0 fL 9.8-13.0 NRBC/100 WBC (test code = 4932239165) See_Comment [Automated me ssage] The system which generated this result transmitted reference range: 0.0 - 10.0 /100 WBCs. The reference range was not used to interpret this result as normal/abnormal. NRBC x10^3 (test code = 1881912075) <0.01 See_Comment [Automated messa ge] The system which generated this result transmitted reference range: 10*3/?L. The reference range was not used to interpret this result as normal/abnormal. GRAN MAT (NEUT) % (test code = 770-8) 76.7 % IMM GRAN % (test code = 1712846504) 0.80 % LYMPH % (test code = 736-9) 15.3 % MONO % (test code = 5905-5) 6.3 % EOS % (test code = 713-8) 0.6 % BASO % (test code = 706-2) 0.3 % GRAN MAT x10^3(ANC) (test code = 0066198568) 8.49 10*3/uL 1.99-6.95 H IMM GRAN x10^3 (test code = 8980451423) 0.09 10*3/uL 0.00-0.06 H LYMPH x10^3 (test code = 731-0) 1.70 10*3/uL 1.09-3.23 MONO x10^3 (test code = 742-7) 0.70 10*3/uL 0.36-1.02 EOS x10^3 (test code = 711-2) 0.07 10*3/uL 0.06-0.53 BASO x10^3 (test code = 704-7) 0.03 10*3/uL 0.01-0.09 Lab Interpretation (test code = 43123-7) Abnormal [facility] HospitalLactic Acid Whole [id number] 21:20:28* Test Item Value Reference Range Interpretation Comme nts LACTIC ACID (test code = 2692396549) 1.62 mmol/L 0.50-2.20 Lab Interpretation (test cod e = 70175-5) Normal [facility]
[2023-02-16 11:26] LABS: Specific Gravity > 1.030 (1.005-1.030); Urine Bacteria <20 /HPF (<20); Urine Bilirubin NEGATIVE (Negative); Urine Blood 1+ (Negative); Urine Clarity Extremely Turbid (Clear); Urine Color Yellow (Yellow); Urine Glucose 4+ (Over) (Negative); Urine Mucus Slight /HPF (None Seen); Urine Protein 1+ (Negative); Urine RBC >50 /HPF (None Seen); Urine Urobilinogen Normal (Normal); Urine pH 6.5 (5.0-7.0)
--- NOTE | 2023-02-16 12:13 | ER ---
Nurse's Notes [facility] Name: Miguel A Cormier Jr Age: 47 yrs Sex: Male : 1975 Arrival Date: 02/16/2023 Time: 10:23 Bed 11 Private MD: Diagnosis: Balanoposthitis;UTI/ Urinary tract infection, site not specified Presentation: 02/16 10:32 Chief complaint: Patient states: PATIENT STATES HAS PENILE SWELLING AND PAIN AROUND db FORESKIN X 3 DAYS WITH PAINFUL URINATION. Coronavirus screen: Vaccine status: Patient reports receiving the 2nd dose of the covid vaccine. Client denies travel out of the [place] in the last 14 days. At this time, the client does not indicate any symptoms associated with coronavirus-19. Ebola Screen: Patient negative for fever greater than or equal to 101.5 degrees Fahrenheit, and additional compatible Ebola Virus Disease symptoms Patient denies exposure to infectious person. Patient denies travel to an Ebola-affected area in the 21 days before illness onset. No symptoms or risks identified at this time. Initial Sepsis Screen: Does the patient meet any 2 criteria? No. Patient's initial sepsis screen is negative. Does the patient have a suspected source of infection? No. Patient's initial sepsis screen is negative. Risk Assessment: Do you want to hurt yourself or someone else? Patient reports no desire to harm self or others. Onset of symptoms was February 16, 2023. 10:32 Method Of Arrival: Ambulatory db 10:32 Acuity: SUSSY 3 db Triage Assessment: 10:50 General: Appears in no apparent distress. uncomfortable, Behavior is calm, cooperative. db 10:51 Pain: Complains of pain in pelvis. Neuro: Level of Consciousness is awake, alert, obeys db commands, Oriented to person, place, time, situation. Respiratory: Airway is patent Respiratory effort is even, unlabored, Respiratory pattern is regular, symmetrical. : Reports burning with urination, pain PENIS. Historical: - Allergies: 10:48 No Known Allergies; db - Home Meds: 10:48 Metformin Oral [Active]; db 10:50 rosuvastatin oral [Active]; db - PMHx: 10:50 Diabetes mellitus; Hypercholesterolemia; db - Immunization history:: Adult Immunizations unknown. - Social history:: Smoking status: Patient denies any tobacco usage or history of. - Family history:: not pertinent. Screenin:53 [facility] ED Fall Risk Assessment (Adult) History of falling in the last 3 months, db including since admission No falls in past 3 months (0 pts) Score/Fall Risk Level 0 - 2 = Low Risk Oriented to surroundings, Maintained a safe environment. Abuse screen: Denies threats or abuse. Denies injuries from another. Nutritional screening: No deficits noted. Tuberculosis screening: No symptoms or risk factors identified. Assessment: 10:52 Reassessment: SEE TRIAGE FOR INITIAL ASSESSMENT. db Vital Signs: 10:32 BP 134 / 102; Pulse 98; Resp 18; Temp 98.6(O); Pulse Ox 95% on R/A; Weight 105.23 kg db (M); Height 5 ft. 8 in. ; Pain 10/10; 10:32 Body Mass Index 35.27 (105.23 kg, 172.72 cm) db 10:32 Pain Scale: Adult db ED Course: 10:25 Patient arrived in ED. im 10:28 Misael Souza MD is Attending Physician. rt 10:45 Audra Bah RN is Primary Nurse. db 10:48 Triage completed. db 10:51 Arm band placed on Patient placed in an exam room. db 12:12 Darren Rico MD is Referral Physician. rt 12:19 Patient has correct armband on for positive identification. Provided Education on: cm10 Follow up procedures.. 12:19 No provider procedures requiring assistance completed. Patient did not have IV access cm10 during this emergency room visit. Administered Medications: No medications were administered Medication: 12:19 VIS not applicable for this client. cm10 Point of Care Testing: Blood Glucose: 10:56 Blood Glucose: 280 mg/dL; db Ranges: Outcome: 12:13 Discharge ordered by . rt 12:19 Discharged to home ambulatory, cm10 12:19 Condition: good 12:19 Discharge instructions given to patient, Instructed on discharge instructions, follow up and referral plans. medication usage, Demonstrated understanding of instructions, follow-up care, medications, Prescriptions given X 3, 12:22 Patient left the ED. cm10 Signatures: Audra Bah RN RN db Misael Souza MD MD rt Yvonne Kennedy Clarissa RN RN cm10 Corrections: (The following items were deleted from the chart) 10:52 10:50 General: Appears in no apparent distress. uncomfortable, Behavior is calm, db cooperative, db
--- NOTE | 2023-02-16 12:13 | EDPHYS ---
Physician Documentation [facility] Name: Miguel A Cormier Jr Age: 47 yrs Sex: Male : 1975 Arrival Date: 02/16/2023 Time: 10:23 Bed 11 Private MD: ED Physician Misael Souza HPI: 02/16 12:47 This 47 yrs old Male presents to ER via Ambulatory with complaints of Penile rt Problem - infection. 12:47 Patient presents to the ED with swelling of the foreskin as well as discharge from the rt penis. States that he has pain with urination. The patient denies any abdominal pain. Denies other acute complaints, symptoms are moderate severity, no other aggravating alleviating factors.. Historical: - Allergies: 10:48 No Known Allergies; db - Home Meds: 10:48 Metformin Oral [Active]; db 10:50 rosuvastatin oral [Active]; db - PMHx: 10:50 Diabetes mellitus; Hypercholesterolemia; db - Immunization history:: Adult Immunizations unknown. - Social history:: Smoking status: Patient denies any tobacco usage or history of. - Family history:: not pertinent. ROS: 12:47 Constitutional: Negative for fever, chills, and weight loss, Cardiovascular: Negative rt for chest pain, palpitations, and edema, Respiratory: Negative for shortness of breath, cough, wheezing, and pleuritic chest pain, Abdomen/GI: Negative for abdominal pain, nausea, vomiting, diarrhea, and constipation, Skin: Negative for injury, rash, and discoloration, Neuro: Negative for headache, weakness, numbness, tingling, and seizure, Psych: Negative for depression, anxiety, suicide ideation, homicidal ideation, and hallucinations, 12:47 : Positive for burning with urination, penile discharge, penile pain, Exam: 12:47 Constitutional: This is a well developed, well nourished patient who is awake, alert, rt and in no acute distress. Head/Face: Normocephalic, atraumatic. Chest/axilla: Normal chest wall appearance and motion. Nontender with no deformity. No lesions are appreciated. Cardiovascular: Regular rate and rhythm with a normal S1 and S2. No gallops, murmurs, or rubs. Normal PMI, no JVD. No pulse deficits. Respiratory: Lungs have equal breath sounds bilaterally, clear to auscultation and percussion. No rales, rhonchi or wheezes noted. No increased work of breathing, no retractions or nasal flaring. Abdomen/GI: Soft, non-tender, with normal bowel sounds. No distension or tympany. No guarding or rebound. No evidence of tenderness throughout. MS/ Extremity: Pulses equal, no cyanosis. Neurovascular intact. Full, normal range of motion. Neuro: Awake and alert, GCS 15, oriented to person, place, time, and situation. Cranial nerves II-XII grossly intact. Motor strength 5/5 in all extremities. Sensory grossly intact. Cerebellar exam normal. Normal gait. Psych: Awake, alert, with orientation to person, place and time. Behavior, mood, and affect are within normal limits. 12:47 : Testicles, scrotum within normal limits, phimosis noted, discharge consistent with candidiasis noted., Vital Signs: 10:32 BP 134 / 102; Pulse 98; Resp 18; Temp 98.6(O); Pulse Ox 95% on R/A; Weight 105.23 kg db (M); Height 5 ft. 8 in. ; Pain 10/10; 10:32 Body Mass Index 35.27 (105.23 kg, 172.72 cm) db 10:32 Pain Scale: Adult db MDM: 10:35 Patient medically screened. rt 12:47 Differential diagnosis: Phimosis, balanoposthitis, UTI. Data reviewed: vital signs, rt nurses notes, lab test result(s). Test considered but Not performed: Other Details Patient with mildly elevated blood sugars, is immediately postprandial, labs not indicated. Patient is a stable vital signs. There is no clinical evidence to suggest Preston's gangrene, do not believe that CT scan is indicated.. Counseling: I had a detailed discussion with the patient and/or guardian regarding the historical points, exam findings, and any diagnostic results supporting the discharge/admit diagnosis, lab results, the need for outpatient follow up, to return to the emergency department if symptoms worsen or persist or if there are any questions or concerns that arise at home. 02/16 10:49 Order name: UAM; Complete Time: 11:28 rt 02/16 11:08 Order name: Glucose, Ancillary Testing; Complete Time: 11:22 EDMS 02/16 11:35 Order name: Urine Culture [facility] 02/16 10:49 Order name: [facility]; Complete Time: 11:22 rt Administered Medications: No medications were administered Point of Care Testing: Blood Glucose: 10:56 Blood Glucose: 280 mg/dL; db Ranges: Critical Glucose Levels:Adult <50 mg/dl or >400 mg/dl <40 mg/dl or >180 mg/dl Disposition Summary: 02/16/23 12:13 Discharge Ordered Notes: Location: Home rt Problem: new rt Symptoms: are unchanged rt Condition: Stable rt Diagnosis - Balanoposthitis rt - UTI/ Urinary tract infection, site not specified rt Followup: rt - With: Darren Rico MD - When: 2 - 3 days - Reason: Continuance of care Discharge Instructions: - Discharge Summary Sheet rt - Balanitis rt - Urinary Tract Infection, Adult rt Forms: - Medication Reconciliation Form rt - Thank You Letter rt - Antibiotic Education rt - Prescription Opioid Use rt - Patient Portal Instructions rt - Leadership Thank You Letter rt Prescriptions: - Clotrimazole 1 % Topical Cream - Apply to affected area 1 application TOPICAL route every 12 hours; 15 gram; rt Refills: 0, Product Selection Permitted - Fluconazole 150 mg Oral tablet - take 1 tablet ORAL route once daily; 5 tablet; Refills: 0, Product Selection rt Permitted - cefpodoxime 200 mg Oral tablet - take 1 tablet ORAL route every 12 hours with food; 14 tablet; Refills: 0, rt Product Selection Permitted Signatures: Dispatcher [employer] Audra Stone RN RN Misael Ortiz MD MD rt
[2023-02-16 13:14] VITALS: BP 134/102; TEMP 98.6; O2SAT 95
== END ==
LOC: ER 10:23
DX: N39.0 Urinary tract infection, site not specified (principal); N47.6 Balanoposthitis
CPT/HCPCS: 81001; 82947; 87086; 87088; 99283

== ENCOUNTER → 2023-02-21 | Emergency (ER) | payer BC ==
[~2023-02-21] MED LIST: PHENAZOPYRIDINE 100MG TAB PO ONE
--- OUTSIDE RECORDS SUMMARY | 2023-02-21 18:16 | XMS REPORT | Continuity of Care Document ---
Author Name Unknown Address [address] [place] [address] 1 [address] [place] [address] [facility] thconnect Address [address] [facility] [address] [place] [address] Care Team Providers Care Environmental Test Technician Name Role Phone PCP, PATIENT DOES NOT HAVE A Primary Care Physic isa Moss RN, Toñito Marquez Attending Clinician Unavail able BERENICE MCCARTY Attending Clinician Unavailable Neftali MCALLISTER, Pat Garrett Attending Clinician Berenice Mccarty DO Attending Clinician [phone] BERENICE MCCARTY Admitting Clinician Unavailable Berenice Mccarty DO Admitting Clinician [phone] Payers Payer Name Policy Type Policy Number Effective Date Expirati on Date Source Problems Condition Name Condition Details Condition Category Status Onset Date Resolution Date Last Treatment Date Treating Clinician Comments Source Acute respirator y failure due to COVID-19 Acute respirator y failure due to COVID-19 Disease Active 07-23 00:00: 00 [facility] Obesity (BMI 30-39.9) Obesity (BMI 30-39.9) Disease Active 07-23 00:00: 00 [facility] Allergies, Adverse Reactions, Alerts Allergy Name Allergy Type Status Severity Reaction(s) Onset Date Inactive Date Treating Clinician Comments Source NO KNOWN ALLERGIE S Drug Class Active [facility] Social History Social Habit Start Date Stop Date Quantity Comments Source Exposure to SARS-CoV-2 (event) Yes [facility] Sex Assigned At 1975 00:00:00 1975 00:00:00 [facility] Smoking Status Start Date Stop Date Source Unknown if ever smoked [facility] Medications Ordered Medication Name Filled Medication Name Start Date Stop Date Current Medication? Ordering Clinician Indication Dosage Frequency Signature (SIG) Comments Components Source cholecalcif sheldon, vitamin D3, 25 mcg (1,000 unit) tablet 07-28 00:00: 00 Yes [id number] 2000U Take 2 tablets by mouth daily. [facility] zinc sulfate 50 mg zinc (220 mg) capsule 07-28 00:00: 00 Yes [id number] 220mg Take 1 capsule by mouth daily. [facility] cholecalcif sheldon, vitamin D3, 25 mcg (1,000 unit) tablet 07-28 00:00: 00 Yes [id number] 2000U Take 2 tablets by mouth daily. [facility] zinc sulfate 50 mg zinc (220 mg) capsule 07-28 00:00: 00 Yes [id number] 220mg Take 1 capsule by mouth daily. [facility] ascorbic acid, vitamin C, 500 mg tablet 07-27 00:00: 00 Yes [id number] 500mg Take 1 tablet by mouth 2 (two) times daily. [facility] aspirin 81 mg chewable tablet 07-27 00:00: 00 Yes [id number] 81mg Take 1 tablet by mouth daily. [facility] ascorbic acid, vitamin C, 500 mg tablet 07-27 00:00: 00 Yes [id number] 500mg Take 1 tablet by mouth 2 (two) times daily. [facility] aspirin 81 mg chewable tablet 07-27 00:00: 00 Yes [id number] 81mg Take 1 tablet by mouth daily. [facility] dexAMETHaso ne 6 mg tablet 07-27 00:00: 00 08-02 04:59 :00 No [id number] 6mg Take 1 tablet by mouth daily with breakfast for [address] [facility] dexAMETHaso ne 6 mg tablet 07-27 00:00: 00 08-02 04:59 :00 No [id number] 6mg Take 1 tablet by mouth daily with breakfast for [address] [facility] ALPRAZolam (XANAX) tablet 0.25 mg 07-25 01:00: 00 Yes .25mg 0.25 mg, Oral, TID, First dose on Fri07/24/20 at 2000, Until Discontinu ed, Routine [facility] cholecalcif sheldon (vitamin D3) tablet 1,000 Units 07-24 14:00: 00 Yes 1000U 1,000 Units, Oral, DAILY, First dose on Fri07/24/20 at 0900, Until Discontinu ed, Routine [facility] zinc sulfate (ORAZINC) capsule 220 mg 07-24 14:00: 00 Yes 220mg 220 mg, Oral, DAILY, First dose on Fri07/24/20 at 0900, Until Discontinu ed, Routine [facility] ascorbic acid (vitamin C) (VITAMIN C) tablet 500 mg 07-24 13:00: 00 Yes 500mg 500 mg, Oral, BID, First dose on Fri07/24/20 at 0800, Until Discontinu ed, Routine [facility] albuterol-i pratropium (COMBIVENT RESPIMAT) 20-100 mcg/actuati on inhaler 1 Puff 07-24 13:00: 00 Yes 1{puff} 1 Puff, Inhalation , QID, First dose on Fri07/24/20 at 0800, Until Discontinu ed, Routine
Is this order for a patient with suspected or confirmed COVID-19 infection? Yes [facility] codeine-gua ifenesin (ROBITUSSIN AC) 10-100 mg/5 mL solution 5 mL 07-24 02:09: 32 Yes 5mL 5 mL, Oral, Q6HPRN, Starting 07/23/20 at 2109, Until Discontinu ed, Routine, [facility] benzonat[facility] (TESSALON PERLES) capsule 100 mg 07-24 02:09: 12 Yes 100mg 100 mg, Oral, TIDPRN, Starting 07/23/20 at 2109, Until Discontinu ed, Routine, Cough [facility] dexamethaso ne (DECADRON PHOSPHATE) injection 6 mg 07-24 01:30: 00 Yes 6mg 6 mg, IV Push, Q24H, First dose (after last reorder) on [place] 07/23/20 at 2030, Until Discontinu ed, Routine [facility] enoxaparin (LOVENOX) injection 40 mg 07-24 01:00: 00 Yes 40mg 40 mg, Subcutaneo us, DAILY, First dose on [place] 07/23/20 at 2000, Until Discontinu ed, Routine [facility] glucagon (GLUCAGEN DIAGNOSTIC KIT) injection 1 mg 07-24 00:16: 50 Yes 1mg 1 mg, Intramuscu lar, PRN, Starting [place] 07/23/20 at 1916, Until Discontinu ed, ALESSANDRO, Blood Glucose < or = 70 mg/dL and patient is unable to swallow or has mental changes. [facility] dextrose 50 % in water (D50W) injection 25 mL 07-24 00:16: 50 Yes 25mL 25 mL, Slow IV Push, PRN, Starting [place] 07/23/20 at 1916, Until Discontinu ed, ALESSANDRO, Blood Glucose < or = 70 mg/dL and patient is unable to swallow or has mental status changes. [facility] dexamethaso ne (DECADRON PHOSPHATE) injection 6 mg 07-23 23:15: 00 07-23 22:24 :00 No 6mg 6 mg, IV Push, ONCE, 1 dose, [place] 07/23/20 at 1815, STAT [facility] iopamidol (ISOVUE 370-500 mL) injection 100 mL 07-23 23:15: 00 07-23 22:08 :00 No [id number] 100mL 100 mL, Intravenou s, ONCE, 1 dose, [place] 07/23/20 at 1815, Routine [facility] benzonatate (TESSALON PERLES) capsule 200 mg 07-23 22:30: 00 07-23 21:26 :00 No 200mg 200 mg, Oral, ONCE, 1 dose, [place] 07/23/20 at 1730, Routine [facility] aspirin tablet 325 mg 07-23 22:00: 00 07-23 21:05 :00 No 325mg 325 mg, Oral, ONCE, 1 dose, [place] 07/23/20 at 1700, STAT [facility] albuterol (VENTOLIN) inhaler 4 Puff 07-23 22:00: 00 07-23 21:06 :00 No 4{puff} 4 Puff, Inhalation , ONCE, 1 dose, [place] 07/23/20 at 1700, ALESSANDRO
Is this order for a patient with suspected or confirmed COVID-19 [address]? [address] [facility] NaCl 0.9% (NS) bolus infusion 1,000 mL 07-23 21:00: 00 07-23 22:30 :00 No 1000mL at 999 mL/hr, 1,000 mL, IV Infusion, ONCE, 1 dose, [place] 07/23/20 at 1600, ALESSANDRO [facility] Vital Signs Vital Name Observation Time Observation Value Comments S ource Respiratory rate 2020-07-27 17:29:00 16 /min [facility] Oxygen saturation in Arterial blood by Pulse oximetry 2020-07-27 17:29:00 93 /min [facility] Systolic blood pressure 2020-07-27 17:07:00 129 mm[Hg] [facility] Diastolic blood pressure 2020-07-27 17:07:00 81 mm[Hg] [facility] Body temperature 2020-07-27 17:07:00 36.78 Germaine [facility] Heart rate 2020-07-27 09:15:00 81 /min [facility] Body weight 2020-07-27 09:15:00 106.459 kg [facility] BMI 2020-07-27 09:15:00 35.69 kg/m2 [facility] Body height 2020-07-24 01:00:00 172.7 cm [facility] Procedures Procedure Date / Time Performed Performing Clinician Source BASIC METABOLIC PANEL (NA, K, CL, CO2, GLUCOSE, BUN, CREATININE, CA) 2020-07-26 10:56:00 Berenice Mccarty [facility] MAGNESIUM 2020-07-25 11:09:[address] [facility] BASIC METABOLIC PANEL (NA, K, CL, CO2, GLUCOSE, BUN, CREATININE, CA) 2020-07-25 11:09:00 Berenice Mccarty [facility] CBC WITH DIFF 2020-07-25 11:08:00 Berenice Mccarty [facility] MRSA / MSSA SCREEN BY PCR, NARES 2020-07-24 21:51:00 Berenice Mccarty [facility] CT CHEST PULMONARY ANGIOGRAM 2020-07-23 22:11:49 Pat Lindsay [facility] HB ECG ROUTINE & RHYTHM STRIP 2020-07-23 21:32:49 Pat Lindsay [facility] D-DIMER 2020-07-23 21:16:00 Pat Lindsay [facility] N-TERMINAL PRO-BNP 2020-07-23 21:16:00 Pat Lindsay [facility] COVID-19 (ID NOW RAPID TESTING) 2020-07-23 21:16:00 Pat Lindsay [facility] LAB ONLY COVID INTERPRETATION 2020-07-23 21:16:00 Pat Lindsay [facility] LACTATE DEHYDROGENASE 2020-07-23 21:16:00 Aretha Lindsay [facility] LIPASE 2020-07-23 21:16:00 Pat Lindsay [facility] FERRITIN SERUM 2020-07-23 21:16:00 [facility] 2020-07-23 21:16:00 Pat Lindsay [facility] HEPATIC FUNCTION PANEL (67531) (ALB,T.PRO,BILI T,BU/BC,ALT,AST,ALK PHOS) 2020-07-23 21:16:00 Pat Lindsay [facility] BASIC METABOLIC PANEL (NA, K, CL, CO2, GLUCOSE, BUN, CREATININE, CA) 2020-07-23 21:16:00 Pat Lindsay [facility] CBC WITH DIFF 2020-07-23 21:16:00 Pat Lindsay [facility] LACTIC ACID WHOLE BLOOD 2020-07-23 21:15:00 Kehinde Lindsay [facility] XR CHEST 1 VW 2020-07-23 21:02:53 Pat Lindsay [facility] NOTICE OF PRIVACY PRACTICES 2020-07-23 20:33:17 Doctor Unassigned, [place] [facility] CONSENT/REFUSAL FOR DIAGNOSIS AND TREATMENT 2020-07-23 20:33:05 Doctor Unassigned, [place] [facility] Encounters Start Date/Time End Date/Time Encounter Type Admission Type Attending Clinicians Care Facility Care Department Encounter ID Source 2020-07-28 00:00:00 2020-07-28 00:00:00 Transition of Care Toñito Moss [id number] [facility] 2020-07-23 15:56:00 2020-07-27 16:42:00 Inpatient X BERENICE MCCARTY [facility] [id number] [facility] 2020-07-23 15:56:00 2020-07-27 16:42:00 Hospital Encounter Pat Lindsay David [facility] [id number] [facility] Results Test Description Test Time Test Comments Results Result Co mments Source [facility] by PCR, [id number] 15:51:01* Test Item Value Reference Range Interpretation Comme nts MSSA Screen by PCR, Nares (test code = 27793-1) Positive Negative A MRSA/MSSA Positive? (test code = 3060578875) Yes No A MCKENNA (test code = MCKENNA) A positive test result does not necessarily indicate the presence of viable organism. Lab Interpretation (test code = 53954-5) Abnormal [facility] WITH [id number] 13:14:16* Test Item Value Reference Range Interpretation [...] 33.5 g/dL 31.2-35.0 RDW-SD (test code = 84361-2) 38.4 fL 38.5-51.6 L RDW-CV (test code = 788-0) 12.4 % 12.1-15.4 PLT (test code = 777-3) See_Comment H [Automated SimpliVitya ge] The system which generated this result transmitted reference range: 150 - 328 10*3/?L. The reference range was not used to interpret this result as normal/abnormal. MPV (test code = 52964-0) 9.9 fL 9.8-13.0 NRBC/100 WBC (test code = 8226741715) See_Comment [Automated Identropy ssage] The system which generated this result transmitted reference range: 0.0 - 10.0 /100 WBCs. The reference range was not used to interpret this result as normal/abnormal. NRBC x10^3 (test code = 8742702912) <0.01 See_Comment [Automated messa ge] The system which generated this result transmitted reference range: 10*3/?L. The reference range was not used to interpret this result as normal/abnormal. GRAN MAT (NEUT) % (test code = 770-8) 79.5 % IMM GRAN % (test code = 3771461233) 1.20 % LYMPH % (test code = 736-9) 13.0 % MONO % (test code = 5905-5) 6.1 % EOS % (test code = 713-8) 0.0 % BASO % (test code = 706-2) 0.2 % GRAN MAT x10^3(ANC) (test code = 6729124151) 7.60 10*3/uL 1.99-6.95 H IMM GRAN x10^3 (test code = 7573140854) 0.11 10*3/uL 0.00-0.06 H LYMPH x10^3 (test code = 731-0) 1.24 10*3/uL 1.09-3.23 MONO x10^3 (test code = 742-7) 0.58 10*3/uL 0.36-1.02 EOS x10^3 (test code = 711-2) <0.03 0.06-0.53 L BASO x10^3 (test code = 704-7) <0.03 0.01-0.09 Lab Interpretation (test code = 80238-4) Abnormal [facility] METABOLIC PANEL (NA, K, CL, CO2, GLUCOSE, BUN, CREATININE, CA)2020-07-25 11:53:08* Test Item Value Reference Range Interpretation Comme nts NA (test code = 7918459173) 138 mmol/L 135-145 K (test code = 6599678502) 4.1 mmol/L 3.5-5.0 CL (test code = 1053887570) 100 mmol/L 98-108 CO2 TOTAL (test code = 9651107813) 30 mmol/L 23-31 AGAP (test code = 8498210856) 2-16 BUN (test code = 0546169417) 16 mg/dL 7-23 GLUCOSE (test code = 9017964431) 181 mg/dL 70-110 H CREATININE (test code = 1411214274) 0.83 mg/dL 0.60-1.25 CALCIUM (test code = 2834328911) 9.1 mg/dL 8.6-10.6 eGFR (test code = 6567125016) mL/min/1.73m2 MCKENNA (test code = MCKENNA) Association [...] imaging tests). Lab Interpretation (test code = 83175-4) Abnormal [facility]2021-06-01 11:53:08* Test Item Value Reference Range Interpretation Comme nts MAGNESIUM (test code = 8977364774) 2.4 mg/dL 1.7-2.4 Lab Interpretation (test cod e = 75276-6) Normal [facility] COVID [id number] 04:29:24COVID DMT InterpretationInterpretation/Recommendations: Molecular NAAT Tests for Active Infection with the SARS-CoV-2 Virus: The current test result is positive for the SARS-CoV-2 virus that causes COVID-19 illness. In ikqd-gz-tneyvpbh illness, the patient may be considered no [...] COVID-19 testing the patient has had at [facility], including molecular NAAT testing (more commonly known as PCR testing and Rapid ID Now testing) and antibody testing.It does not take into account any testing that a patient has had outside of the [facility] medical record. [facility] LABORATORY SERVICESCOVID KhyxhviTOIW-MfJ-5 Rapid ID NOW (no units) ? ? Date ? Value ? 07/23/2020 ? Positive (A) ? [facility]ORATORY SERVICESQu[facility] HospitalCT CHEST PULMONARY [id number] 00:56:041. ?No pulmonary embolism. 2. ?Findings compatible with known atypical infection, including Covid 19 pneumonia. Preliminary Report Dictated by Resident: Manjeet Martin MD., have reviewed this study and agree [...] blastic skeletal lesions. VISUALIZED UPPER ABDOMEN: Unremarkable. [facility], [place], Radiant Results Inft User - 07/23/2020 7:57 [...] this study and agree with theabove report. [facility] 1 [id number] 00:02:18Findings suggestive of atypical infection including but not limited toCovid 19. Preliminary Report Dictated by Resident: Manjeet Melendez MD., have reviewed this study and agree with theabove report.EXAM: XR CHEST 1 07/23/2020 3:57 PM HISTORY: 45 years-old Male [...] from the orig inal.EXAM: XR CHEST 1 07/23/2020 3:57 PMHISTORY: 45 years-old Male with sob COMPARISON: CR,none TECHNIQUE: AP chest radiograph.FINDINGS:Multiple bilateral hazy patchy opacities with peripheral predominance. Thelungs are under distended. No pleural effusion or pneumothorax identified.The cardiomediastinal silhouette is normal in size.No acute osseous abnormalities.IMPRESSIONFindings suggestive of atypical infection including but not limited toCovid 19.Preliminary Report Dictated by Resident: Manjeet Gramajo MD., have reviewed this study and agree with theabove report.[facility] HospitalFERRITIN [id number] 22:39:08* Test Item Value Reference Range Interpretation Comme nts FERRITIN (test code = 7289391337) >1000.0 18.0-464.0 H MCKENNA (test code = MCKENNA) Biotin has been reported to cause a negative bias, interpret results relative to patient's use of biotin. Lab Interpretation (test code = 58272-5) Abnormal [facility] HospitalCOVID-19 (ID NOW RAPID TESTING)2020-07-23 22:24:20* Test Item Value Reference Range Interpretation Comme nts SARS-CoV-2 Rapid ID NOW (test code = 86099-3) Positive Not Detected A MCKENNA (test code = MCKENNA) ID NOW COVID-19 As say is an isothermal nucleic acid amplification test intended for the qualitative detection of nucleic acid from SARS-CoV-2 viral RNA in nasopharyngeal ([employer]) specimens. It is used under Emergency Use [...] clinically indicated. Lab Interpretation (test code = 27405-1) Abnormal [facility] HospitalTroponin [id number] 21:53:04* Test Item Value Reference Range Interpretation Comme nts TROPONIN I (test code = 6692421285) 0.000 ng/mL See_Comment [Automated message] The system [...] biotin. ? Lab Interpretation (test code = 75094-4) Normal [facility] HospitalN-TERMINAL [id number] 21:50:07* Test Item Value Reference Range Interpretation Comme nts NT-proBNP (test code = 3649313336) 27 pg/mL See_Comment [Automated message] The system which generated this result transmitted reference range: <=125. The reference range was not used to interpret this result as normal/abnormal. MCKENNA (test code = MCKENNA) Biotin has been reported to cause a negative bias, interpret results relative to patient's use of biotin. Lab Interpretation (test code = 36909-4) Normal [facility] HospitalHepatic Function Panel (ALB, T.PRO, BILI T, BU/BC, ALT, AST, ALK PHOS)2020-07-23 21:42:47* Test Item Value Reference Range Interpretation Comme nts TOTAL BILI (test code = 0169525603) 0.8 mg/dL 0.1-1.1 BILI UNCON (test code = 1740060818) 0.4 mg/dL 0.1-1.1 BILI CONJ (test code = 9036955000) 0.0 mg/dL 0.0-0.3 T PROTEIN (test code = 4930675696) 8.1 g/dL 6.3-8.2 ALBUMIN (test code = 3506785175) 4.2 g/dL 3.5-5.0 ALK PHOS (test code = 0124984427) 123 U/L 34-122 H ALTv (test code = 1742-6) 81 U/L 5-50 H AST(SGOT) (test code = 3440542590) 73 U/L 13-40 H Lab Interpretation (test cod e = 26616-2) Abnormal [facility] Metabolic Panel (NA, K, CL, CO2, GLUCOSE, BUN, CREATININE, CA)2020-07-23 21:42:46* Test Item Value Reference Range Interpretation Comme nts NA (test code = 2952248014) 136 mmol/L 135-145 K (test code = 6169129160) 3.7 mmol/L 3.5-5.0 CL (test code = 6690339622) 98 mmol/L 98-108 CO2 TOTAL (test code = 6391277708) 27 mmol/L 23-31 AGAP (test code = 8578565747) 2-16 BUN (test code = 6945378693) 10 mg/dL 7-23 GLUCOSE (test code = 3473798150) 152 mg/dL 70-110 H CREATININE (test code = 5769628342) 1.02 mg/dL 0.60-1.25 CALCIUM (test code = 4247563534) 9.1 mg/dL 8.6-10.6 eGFR (test code = 6805538546) mL/min/1.73m2 MCKENNA (test code = MCKENNA) Association [...] imaging tests). Lab Interpretation (test code = 29212-9) Abnormal [facility] HospitalLipase [id number] 21:42:26* Test Item Value Reference Range Interpretation Comme nts LIPASE (test code = 4681143611) 30 U/L 0-220 Lab Interpretation (test cod e = 85269-7) Normal [facility] HospitalLACTATE [id number] 21:42:26* Test Item Value Reference Range Interpretation Comme nts LDH (test code = 1918384560) 1413 U/L 300-600 H Lab Interpretation (test cod e = 31793-2) Abnormal [facility] HospitalD-[id number] 21:38:44* Test Item Value Reference Range Interpretation Comments D-DIMER (test code = 5756960405) See_Comment H [Automated message] The system which [...] a diagnosis. Lab Interpretation (test code = 33383-1) Abnormal [facility] HospitalCBC with [id number] 21:31:05* Test Item Value Reference Range Interpretation Comme nts WBC (test code = 6690-2) See_Comment H [Automated messa ge] The system [...] 33.6 g/dL 31.2-35.0 RDW-SD (test code = 55523-2) 38.5 fL 38.5-51.6 RDW-CV (test code = 788-0) 12.6 % 12.1-15.4 PLT (test code = 777-3) See_Comment H [Automated messa ge] The system which generated this result transmitted reference range: 150 - 328 10*3/?L. The reference range was not used to interpret this result as normal/abnormal. MPV (test code = 50405-2) 10.0 fL 9.8-13.0 NRBC/100 WBC (test code = 5787437117) See_Comment [Automated Identropy ssage] The system which generated this result transmitted reference range: 0.0 - 10.0 /100 WBCs. The reference range was not used to interpret this result as normal/abnormal. NRBC x10^3 (test code = 5631738183) <0.01 See_Comment [Automated messa ge] The system which generated this result transmitted reference range: 10*3/?L. The reference range was not used to interpret this result as normal/abnormal. GRAN MAT (NEUT) % (test code = 770-8) 76.7 % IMM GRAN % (test code = 9854955264) 0.80 % LYMPH % (test code = 736-9) 15.3 % MONO % (test code = 5905-5) 6.3 % EOS % (test code = 713-8) 0.6 % BASO % (test code = 706-2) 0.3 % GRAN MAT x10^3(ANC) (test code = 8473884162) 8.49 10*3/uL 1.99-6.95 H IMM GRAN x10^3 (test code = 6658405545) 0.09 10*3/uL 0.00-0.06 H LYMPH x10^3 (test code = 731-0) 1.70 10*3/uL 1.09-3.23 MONO x10^3 (test code = 742-7) 0.70 10*3/uL 0.36-1.02 EOS x10^3 (test code = 711-2) 0.07 10*3/uL 0.06-0.53 BASO x10^3 (test code = 704-7) 0.03 10*3/uL 0.01-0.09 Lab Interpretation (test code = 61472-7) Abnormal [facility] HospitalLactic Acid Whole [id number] 21:20:28* Test Item Value Reference Range Interpretation Comme nts LACTIC ACID (test code = 9370379782) 1.62 mmol/L 0.50-2.20 Lab Interpretation (test cod e = 03282-9) Normal [facility]
--- NOTE | 2023-02-21 19:53 | RAD REPORT ---
EXAM DESCRIPTION: CT - Stone Protocol - 02/21/2023 7:31 pm CLINICAL HISTORY: HEMATURIA COMPARISON: No comparisons TECHNIQUE: Thin cut axial CT imaging of the abdomen and pelvis was performed without IV contrast. Mu ltiplanar reformats were generated and reviewed. All CT scans are performed using dose optimization technique as appropriate and may include automated exposure control or mA/KV adjustment according to patient size. FINDINGS: No suspicious findings in the lung bases. The liver, spleen, adrenal glands, and pancreas show no suspicious findings. Gallbladder and biliary tree are also without suspicious finding. Symmetric renal contour, without suspicious parenchymal findings within limits of noncontrast techniq ue. No evidence of radiopaque calculi or hydroureteronephrosis. No dilated bowel loops or bowel wall thickening. No free air, free fluid or inflammatory stranding. N o hernia, mass or bulky lymphadenopathy. The urinary bladder is without significant finding. No suspicious bony findings. IMPRESSION: No acute intra-abdominal process.
[2023-02-21 22:09] LABS: Absolute Lymphocytes (CBC) 3.6 K/uL (0.7-4.9); Hematocrit 48.7 % (39.6-49.0); Lymphocytes % 33.7 % (15.3-44.8); MCV 83.8 fL (80-100); MPV 8.3 fL (7.6-11.3); Platelets 396 thou/uL (152-406); RBC Red Blood Cell Count 5.81 M/uL (4.33-5.43)
[2023-02-21 22:10] LABS: Specific Gravity > 1.030 (1.005-1.030); Urine Bacteria <20 /HPF (<20); Urine Bilirubin NEGATIVE (Negative); Urine Blood 3+ (OVER) (Negative); Urine Clarity Extremely Turbid (Clear); Urine Color Yellow (Yellow); Urine Crystals Unidentified Few /HPF (None Seen); Urine Glucose 2+ (Negative); Urine Mucus 1+ /HPF (None Seen); Urine Protein 1+ (Negative); Urine RBC >50 /HPF (None Seen); Urine Urobilinogen Normal (Normal); Urine WBC Clump Few /HPF (None Seen); Urine pH 5.5 (5.0-7.0)
[2023-02-21 22:22] LABS: Potassium 3.8 mEq/L (3.5-5.1)
--- NOTE | 2023-02-21 22:29 | EDPHYS ---
Physician Documentation [facility] Name: Miguel A Cormier Jr Age: 47 yrs Sex: Male : 1975 Arrival Date: 02/21/2023 Time: 18:12 Bed 7 Private MD: ED Physician Kaleb Fang HPI: 02/21 22:27 This 47 yrs old Male presents to ER via Ambulatory with complaints of BLOOD IN kb URINE. 22:28 Pt is a 47 year old male who presents with burning with urination and hematuria. states kb the pain started on 02/16 and he noticed the blood today. Denies fever. Is currently on cefpodoxime for a UTI. Historical: - Allergies: 18:26 No Known Allergies; hb - Home Meds: 18:26 Metformin Oral [Active]; rosuvastatin oral [Active]; hb - PMHx: 18:26 diabetes mellitus; Hypercholesterolemia; hb - PSHx: 18:26 None; hb - Immunization history:: Immunization history: Client reports receiving the 2nd dose of the Covid vaccine, Flu vaccine is not up to date. - Social history:: Smoking status: Patient denies any tobacco usage or history of. ROS: 22:25 Constitutional: Negative for fever, chills, and weight loss, kb 22:25 : Positive for urinary symptoms, hematuria, burning with urination, 22:25 All other systems are negative, Exam: 22:25 Constitutional: This is a well developed, well nourished patient who is awake, alert, kb and in no acute distress. Head/Face: Normocephalic, atraumatic. ENT: Moist Mucous membranes Cardiovascular: Regular rate Respiratory: Respirations even and unlabored. No increased work of breathing. Talking in full sentences Abdomen/GI: Soft, non-tender. No distention Back: No spinal tenderness. No costovertebral tenderness. Full range of motion. Skin: Warm, dry with normal turgor. Normal color. MS/ Extremity: Pulses equal, no cyanosis. Neurovascular intact. Full, normal range of motion. Neuro: Awake and alert, GCS 15, oriented to person, place, time, and situation. Moves all extremities. Normal gait. Vital Signs: 18:25 BP 140 / 83; Pulse 88; Resp 16; Temp 98; Pulse Ox 100% on R/A; Weight 104.33 kg; Height hb 5 ft. 8 in. ; Pain 10/10; 22:48 BP 138 / 80; Pulse 84; Resp 16; Pulse Ox 100% ; vc1 18:25 Body Mass Index 34.97 (104.33 kg, 172.72 cm) hb 18:25 Pain Scale: Adult hb MDM: 18:16 Patient medically screened. kb 22:26 Differential diagnosis: uti, kidney stones. Data reviewed: vital signs, nurses notes. kb Counseling: I had a detailed discussion with the patient and/or guardian regarding the historical points, exam findings, and any diagnostic results supporting the discharge/admit diagnosis, lab results, radiology results, the need for outpatient follow up, a urologist, to return to the emergency department if symptoms worsen or persist or if there are any questions or concerns that arise at home. 02/21 18:33 Order name: CBC with Diff; Complete Time: 22:13 kb 02/21 18:33 Order name: Basic Metabolic Panel; Complete Time: 22:24 kb 02/21 18:33 Order name: Urinalysis w/ reflexes; Complete Time: 22:24 kb 02/21 22:16 Order name: Urine Culture EDMS 02/21 18:33 Order name: CT Stone Protocol; Complete Time: 19:56 kb 02/21 18:33 Order name: IV Start; Complete Time: 21:52 kb Administered Medications: 22:46 Drug: Phenazopyridine PO 200 mg PO once Route: PO; vc1 22:46 Follow up: Response: Medication administered at discharge. vc1 Disposition Summary: 02/21/23 22:29 Discharge Ordered Notes: Location: Home kb Condition: Stable kb Diagnosis - UTI/ Urinary tract infection, site not specified kb Followup: kb - With: Emergency Department - When: As needed - Reason: Worsening of condition Followup: kb - With: Private Physician - When: 2 - 3 days - Reason: Recheck today's complaints, Continuance of care, Re-evaluation by your physician Discharge Instructions: - Discharge Summary Sheet kb - Urinary Tract Infection, Adult, [id number] kb Forms: - Medication Reconciliation Form kb - Thank You Letter kb - Antibiotic Education kb - Prescription Opioid Use kb - Patient Portal Instructions kb - Leadership Thank You Letter kb Prescriptions: - Pyridium 200 mg Oral Tablet - take 1 tablet ORAL route every 8 hours for 3 days; 9 tablet; Refills: 0, kb Product Selection Permitted Signatures: Dispatcher [employer] Aida Humphrey FNP-C FNP-Polina Garcia, RN RN hb Teresa Quevedo RN RN vc1 Corrections: (The following items were deleted from the chart) 18:28 18:26 Allergies: Aspirin; hb hb
--- NOTE | 2023-02-21 22:29 | ER ---
Nurse's Notes [facility] Name: Miguel A Cormier Jr Age: 47 yrs Sex: Male : 1975 Arrival Date: 02/21/2023 Time: 18:12 Bed 7 Private MD: Diagnosis: UTI/ Urinary tract infection, site not specified Presentation: 02/21 18:22 Chief complaint: Bright red blood in urine x 2 today. Seen in ED last weekend for UTI. hb Denies abdominal/flank pain. 18:25 Coronavirus screen: At this time, the client does not indicate any symptoms associated hb with coronavirus-19. Ebola Screen: No symptoms or risks identified at this time. Initial Sepsis Screen: Does the patient meet any 2 criteria? No. Patient's initial sepsis screen is negative. Does the patient have a suspected source of infection? No. Patient's initial sepsis screen is negative. Risk Assessment: Do you want to hurt yourself or someone else? Patient reports no desire to harm self or others. Onset of symptoms was February 14, 2023. 18:25 Method Of Arrival: Ambulatory hb 18:25 Acuity: SUSSY 3 hb Triage Assessment: 21:53 General: Appears in no apparent distress. uncomfortable, Behavior is calm, cooperative, bp appropriate for age. Pain: Denies pain. Historical: - Allergies: 18:26 No Known Allergies; hb - Home Meds: 18:26 Metformin Oral [Active]; rosuvastatin oral [Active]; hb - PMHx: 18:26 diabetes mellitus; Hypercholesterolemia; hb - PSHx: 18:26 None; hb - Immunization history:: Immunization history: Client reports receiving the 2nd dose of the Covid vaccine, Flu vaccine is not up to date. - Social history:: Smoking status: Patient denies any tobacco usage or history of. Screenin:53 [facility] ED Fall Risk Assessment (Adult) History of falling in the last 3 months, bp including since admission No falls in past 3 months (0 pts). Abuse screen: Denies threats or abuse. Denies injuries from another. Nutritional screening: No deficits noted. Tuberculosis screening: No symptoms or risk factors identified. Assessment: 22:47 General: Appears uncomfortable, Behavior is calm, cooperative, appropriate for age. vc1 Pain: Complains of pain in meatus. Neuro: No deficits noted. Cardiovascular: No deficits noted. Respiratory: Airway is patent Respiratory effort is even, unlabored, Respiratory pattern is regular, symmetrical. GI: No deficits noted. No signs and/or symptoms were reported involving the gastrointestinal system. : Reports burning with urination. EENT: No deficits noted. No signs and/or symptoms were reported regarding the EENT system. Derm: No deficits noted. No signs and/or symptoms reported regarding the dermatologic system. Vital Signs: 18:25 BP 140 / 83; Pulse 88; Resp 16; Temp 98; Pulse Ox 100% on R/A; Weight 104.33 kg; Height hb 5 ft. 8 in. ; Pain 10/10; 22:48 BP 138 / 80; Pulse 84; Resp 16; Pulse Ox 100% ; vc1 18:25 Body Mass Index 34.97 (104.33 kg, 172.72 cm) hb 18:25 Pain Scale: Adult hb ED Course: 18:15 Patient arrived in ED. ae5 18:16 Aida Mcgarry FNP-C [facility]. kb 18:16 Kaleb Fnag MD is Attending Physician. kb 18:26 Triage completed. hb 18:28 Arm band placed on. hb 19:33 CT Stone Protocol In Process Unspecified. EDMS 21:40 Joshua Beebe, RN is Primary Nurse. bp 21:52 Inserted saline lock: 20 gauge in right forearm, using aseptic technique. Blood bp collected. 21:53 Patient has correct armband on for positive identification. Bed in low position. Call bp light in reach. Adult w/ patient. 22:47 No provider procedures requiring assistance completed. IV discontinued, intact, vc1 bleeding controlled, No redness/swelling at site. Pressure dressing applied. 22:49 Provided Education on: Continue taking antibiotic. vc1 Administered Medications: 22:46 Drug: Phenazopyridine PO 200 mg PO once Route: PO; vc1 22:46 Follow up: Response: Medication administered at discharge. vc1 Medication: 22:48 VIS not applicable for this client. vc1 Outcome: 22:29 Discharge ordered by . kb 22:48 Discharged to home ambulatory, vc1 22:48 Condition: good 22:48 Discharge instructions given to patient, Instructed on discharge instructions, follow up and referral plans. medication usage, Demonstrated understanding of instructions, follow-up care, medications, Prescriptions given X 1, 22:49 Patient left the ED. vc1 Signatures: Dispatcher [employer] EDMS Aida Mcgarry, OUT[employer] CONSULTANT-C OUTSIDE [employer] SAL[employer] CONSULTANT-Polina Garcia, RN RN hb Joshua Beebe RN RN Teresa Greenfield RN RN vc1 Emilie Ortiz ae5 Corrections: (The following items were deleted from the chart) 18:26 18:22 Chief complaint: Bright red blood in urine x 2 today. Seen in ED last weekend hb for. Denies abdominal/flank pain. hb 18:28 18:26 Allergies: Aspirin; hb hb
[2023-02-22 00:27] VITALS: TEMP 98; O2SAT 100
[2023-02-22 00:41] VITALS: BP 138/80
== END ==
LOC: ER 18:12
DX: N39.0 Urinary tract infection, site not specified (principal); E11.9 Type 2 diabetes mellitus without complications
CPT/HCPCS: 36415; 74176; 76377; 80048; 81001; 85025; 87086; 87088; 99284